=== PATIENT | female | born 1975 | race Caucasian/White ===

== ENCOUNTER 2019-12-18 12:16 | Observation (INO) | payer MEDICARE ==
[2019-12-18] MEDS ORDERED: Fentanyl 100 MCG/2 ML VIAL ONE ×2 (13:32→15:07)
[2019-12-18] MEDS ORDERED: Ondansetron PF 4 MG/2 ML Vial ONE (13:32)
--- NOTE | 2019-12-18 15:09 | ULT ---
Exam: Right upper extremity venous duplex ultrasound with color flow and spectral Doppler evaluation HISTORY: Right arm pain FINDINGS: Internal jugular vein, subclavian vein, axillary vein, brachial vein, and radial and ulnar veins are evaluated as well as the basilic and cephalic veins. There is phasic flow at all levels with normal compressibility and normal augmentation. No intralumin al thrombus. IMPRESSION: No evidence for deep venous thrombosis involving the right upper extremity.
[2019-12-18] MEDS ORDERED: HYDROcodone/Acetaminophen 7.5/325 mg Tablet PO PRN (15:48)
[2019-12-18] MEDS ORDERED: HYDROcodone/Acetaminophen 5/325 mg Tablet PO PRN (15:48)
[2019-12-18] MEDS ORDERED: Calcium Carbonate 500 MG ChewTAB PO PRN (15:48)
[2019-12-18] MEDS ORDERED: Loperamide HCl 2 MG CAP PO PRN (15:48)
[2019-12-18] MEDS ORDERED: Ondansetron PF 4 MG/2 ML Vial IVP PRN (15:48)
[2019-12-18] MEDS ORDERED: Ondansetron ODT 4 MG TAB PO PRN (15:48)
[2019-12-18] MEDS ORDERED: Bisacodyl 5 MG TAB PO PRN (15:48)
[2019-12-18] MEDS ORDERED: Acetaminophen 325 MG TAB PO PRN (15:48)
[2019-12-18] MEDS ORDERED: Benzonatate 100 MG CAP PO PRN (15:53)
[2019-12-18] MEDS ORDERED: Melatonin 3 MG TAB PO PRN (15:53)
[2019-12-18] MEDS ORDERED: Docusate 100 MG CAP PO PRN (15:53)
[2019-12-18] MEDS ORDERED: Morphine 2 MG/ML SYRINGE SLOW IVP PRN ×2 (15:53→16:05)
[2019-12-18] MEDS ORDERED: diphenhydrAMINE 25 MG CAP PO PRN (15:53)
[2019-12-18] MEDS ORDERED: Labetalol HCl 100 MG/20 ML VIAL SLOW IVP PRN (15:53)
[2019-12-18] MEDS ORDERED: Enoxaparin Sodium 100 MG/ML SYRINGE ONE (17:01)
[2019-12-18] MEDS ORDERED: Enoxaparin Sodium 40 MG/0.4 ML SYRINGE ONE (17:16)
--- NOTE | 2019-12-18 17:41 | PDOC.HHP ---
Hospitalist HPI - History of Present Illness Chest pain History of Present Illness: 44-year-old female with complex past medical history presents with chest pain and shortness of breath. Patient has an extensive past medical history including oxygen dependents 2 to 3 L nasal cannula continuously, congestive heart failure though she does not recall for systolic or diastolic, history of pulmonary embolism, pulmonary artery hypertension confirmed on cardiac catheterization, seizure disorder on Keppra, lupus, breast cancer status post bilateral mastectomy with lymph node removal, chronic lymphedema who is on diuretic therapy and chronic pain syndrome. Patient states that she just moved here from [place] roughly one month ago. Patient has not followed up with primary care physician, cardiology, or pulmonology. Patient also has been evaluated for obstructive sleep apnea and states that she had negative sleep study though her oxygen does drop when she sleeps. Patient with progressive worsening of swelling in the bilateral arms and the bilateral legs. Patient with chest pain and shortness of breath. Patient without associated palpitations , no diaphoresis, no fevers, no chills, no syncopal episodes. Patient admits to drinking excessive amount of liquid in states that she drinks sweet tea excessively. Patient with morbid obesity and states that she has lost a lot of weight compared to how heavy she once was. With patient's numerous medical comorbidities a cardiology consultation is requested for further recommendations. With a negative D dimer the pulmonary embolism has been ruled out and with a ultrasound negative for DVT in the upper extremity. Hospitalist ROS - Review of Systems All other systems reviewed; all pertinent +/- noted in HPI/Subj Hospitalist History - Past Medical History Source: patient Cardiac: reports: CHF, Pulmonary hypertension Pulmonary: reports: congestive heart failure, hypertension, lung disease, previously intubated, pulmonary embolism Heme/Onc: reports: Cancer Renal/: reports: Chronic renal insuff - Past Surgical History Past Surgical History: reports: Mastectomy, Other (Cardiac cath times 2 - one confirmed PAH, one with normal pressures. This is per patient) - Family History Family History: reports: hypertension - Social History Smoking Status: Unknown if ever smoked Alcohol: reports: Rare Living Situation: With Family Activity level: independent ambulation - Exam General Appearance: NAD, awake alert Eye: anicteric sclera ENT: normocephalic atraumatic, moist mucosa Neck: supple, symmetric, no lymphadenopathy Heart: no murmur, no gallops, no rubs Respiratory: no rales, no ronchi, normal chest expansion, no tachypnea, wheezes (faint lower lung ingram) Gastrointestinal: soft, non-tender, no guarding, no rigidity Extremities: 2+ LE edema Extremities - other findings: +1 UE edema bilaterally Skin: no lesions, no rashes Neurological: cranial nerve grossly intact, no focal deficits Musculoskeletal: generalized weakness Psychiatric: normal affect, normal behavior, A&O x 3 Hospitalist Results - Labs Lab results: Troponin I Less than 0.010 ng/mL (< 0.028) 12/18/19 13:17 B-Natriuretic Peptide 56.5 pg/mL (0-100) 12/18/19 13:17 - Radiology Interpretation Chest x-ray Status: image reviewed by hi Hospitalist H&P A/P - Problem (1) Chest pain Code(s): R07.9 - CHEST PAIN, UNSPECIFIED Status: Acute (2) Shortness of breath Code(s): R06.02 - SHORTNESS OF BREATH Status: Acute (3) CHF (congestive heart failure) Code(s): I50.9 - HEART FAILURE, UNSPECIFIED Status: Acute (4) PAH (pulmonary artery hypertension) Code(s): I27.21 - SECONDARY PULMONARY ARTERIAL HYPERTENSION Status: Acute (5) Obesity Code(s): E66.9 - OBESITY, UNSPECIFIED Status: Acute (6) Seizure Code(s): R56.9 - UNSPECIFIED CONVULSIONS Status: Acute (7) Lupus Code(s): M32.9 - SYSTEMIC LUPUS ERYTHEMATOSUS, UNSPECIFIED Status: Acute (8) Renal insufficiency Status: Acute (9) Breast cancer Status: Acute (10) Post-mastectomy lymphedema syndrome Code(s): I97.2 - POSTMASTECTOMY LYMPHEDEMA SYNDROME Status: Acute - Plan Plan: Plan: admit to medical unit with telemetry cardiology consultation, recommendations appreciated Supplemental O2 to maintain saturation greater than 88% echocardiogram CT scan of the chest with and without contrast negative D dimer, making PE unlikely VQ scan would limit ability to preform Lexiscan by 48 hours ultrasound of the upper extremity has ruled out a DVT patient with post mastectomy lymphedema syndrome patient has chronic lower extremity edema for which she takes Bumex at baseline patient with history of congestive heart failure that she does not know the ejection fraction history of pulmonary artery hypertension confirmed on cardiac catheterization in the past patient has been evaluated for obstructive sleep apnea was sleep study which she states was negative continue Yadi for seizure disorder history of lupus blood pressure control blood sugar control G.I. prophylaxis DVT prophylaxis Disposition: patient admitted with chest pain and shortness of breath the differential diagnosis is quite extensive. With a negative D dimer a pulmonary embolism is unlikely. Patient does not have infectious process ongoing at this time, afebrile/ normal WBC count. Patient's O2 saturation's are at her baseline on nasal cannula. Patient denies coronary artery disease and although this is possible, would be less likely given her age and lack or other risk factors. Patient may have pericardial effusion, and echocardiogram has been ordered.
[2019-12-18] MEDS ORDERED: Dextrose 5% in Water 1,000 ML IV PRN (18:32)
[2019-12-18] MEDS ORDERED: Dextrose 50% Abboject 50 ML SYRINGE SLOW IVP PRN (18:32)
[2019-12-18] MEDS ORDERED: HumaLOG 300 UNITS/3 ML VIAL SC PRN ×2 (18:32)
[2019-12-18 19:32] VITALS: BMI 47.5
[2019-12-18] MEDS: Potassium Chloride 20 MEQ TAB PO SCH (20:35)
[2019-12-18] MEDS: Gabapentin 300 MG CAP PO SCH (20:35)
[2019-12-18] MEDS: levETIRAcetam 500 MG TAB PO SCH (20:35)
[2019-12-18] MEDS ORDERED: Famotidine 20 MG TAB PO SCH (21:00)
[2019-12-18] MEDS ORDERED: rOPINIRole HCl 2 MG TAB PO SCH (21:00)
[2019-12-18] MEDS ORDERED: levETIRAcetam 500 MG TAB PO SCH (21:00)
[2019-12-18] MEDS ORDERED: Buprenorphine 8mg/Naloxone 2mg per 1 FILM SL SCH (21:15)
[2019-12-19] MEDS: Potassium Chloride 20 MEQ TAB PO SCH (02:51)
[2019-12-19 05:00] LABS: #Basophils 0.1 thou/uL (0.0-0.2); #Eosinphils 0.2 thou/uL (0.0-0.7); #Lymphocytes 2.9 thou/uL (1.20-3.40); #Monocytes 0.5 thou/uL (0.11-0.59); #Neutrophils 3.3 thou/uL (1.40-6.50); %Eosinophils 2.4 % (0.0-10.0); %Lymphocytes 42.3 % (21.0-51.0); %Monocytes 7.2 % (0.0-10.0); %Neutrophils 47.1 % (42.0-75.0); Hemoglobin 11.6 g/dL (12.0-16.0); Mean Corpuscular HGB CONC 31.4 g/dL (32.0-36.0); Mean Corpuscular Hemoglobin 27.8 pg (27.0-31.0); Mean Corpuscular Volume 88.6 fL (78.0-98.0); Mean Platelet Volume 8.3 fL (7.4-10.4); Platelet Count 240 thou/uL (130-400); RBC Distribution Width 13.4 % (11.5-14.5); Red Blood Cell (RBC) Count 4.16 mill/uL (4.20-5.40); White Blood Cell (WBC) Count 6.9 thou/uL (4.8-10.8)
[2019-12-19 05:25] LABS: Anion Gap 13 mmol/L (10-20); BUN (Urea Nitrogen) 16 mg/dL (7.0-18.7); Calc. Creatinine Clearance 220 mL/min (70-130); Carbon Dioxide 25 mmol/L (22-29); Chloride 105 mmol/L (98-107); Estimated GFR-MDRD 86; Glucose 120 mg/dL (70-105); Potassium 3.4 mmol/L (3.5-5.1); Sodium 140 mmol/L (136-145)
[2019-12-19] MEDS: Furosemide 20 MG/2 ML VIAL SLOW IVP SCH ×2 (05:45→14:26)
--- NOTE | 2019-12-19 07:52 | PDOC.HOSPP ---
- Subjective Encounter Date: 12/19/19 Encounter Time: 11:00 Subjective: No further chest pain. Chronic SOB. Mild swelling in RUE without pain or redness , not sure if had lymph nodes removed on that side or just the left. Had one of her typical migraines this AM that resolved with a single dose of IV Toradol. - Objective Vital Signs & Weight: Vital Signs (12 hours) Temp Pulse Resp BP Pulse Ox 12/19/19 05:00 98.3 F 83 18 131/84 98 Weight Weight 313 lb I&O: 12/18/19 12/19/19 12/20/19 06:59 06:59 06:59 Intake Total 492 Balance 492 Result Diagrams: 12/19/19 04:31 12/19/19 04:31 Additional Labs: Accuchecks 12/18/19 20:38 POC Glucose 90 Hospitalist ROS - Review of Systems Constitutional: denies: fever, chills Respiratory: reports: SOB with excertion. denies: cough Cardiovascular: reports: edema. denies: chest pain, palpitations Gastrointestinal: denies: nausea, vomiting, abdominal pain - Medication Medications: Active Medications Generic Name Dose Route Start Last Admin Trade Name Freq PRN Reason Stop Dose Admin Hydrocodone Bitart/Acetaminophen 1 tab 12/18/19 15:48 12/19/19 05:45 Vernon 7.5/325 PO 1 tab Q4H PRN Administration Severe Pain (7-10) Famotidine 20 mg 12/18/19 21:00 12/18/19 20:35 Pepcid PO 20 mg BID JAYDEN Administration Furosemide 20 mg 12/19/19 06:00 12/19/19 05:45 Lasix SLOW IVP 20 mg 0600,1400 JAYDEN Administration Gabapentin 300 mg 12/18/19 21:00 12/18/19 20:35 Neurontin PO 300 mg TID JAYDEN Administration Levetiracetam 250 mg 12/18/19 21:00 12/18/19 20:35 Keppra PO 250 mg BID JAYDEN Administration Melatonin 3 mg 12/18/19 15:53 12/18/19 20:35 Melatonin PO 3 mg HSPRN PRN Administration Insomnia Ropinirole HCl 6 mg 12/18/19 21:00 12/18/19 20:34 Requip PO 6 mg QPM JAYDEN Administration - Exam General Appearance: NAD, awake alert ENT: moist mucosa Heart: RRR, no murmur, no gallops, no rubs Respiratory: CTAB, no wheezes, no rales, no ronchi Gastrointestinal: soft, non-tender, non-distended, normal bowel sounds Psychiatric: normal affect, normal behavior, A&O x 3 Hosp A/P (1) Chest pain Code(s): R07.9 - CHEST PAIN, UNSPECIFIED Status: Acute (2) Shortness of breath Code(s): R06.02 - SHORTNESS OF BREATH Status: Acute (3) Hypokalemia Code(s): E87.6 - HYPOKALEMIA Status: Acute (4) CHF (congestive heart failure) Code(s): I50.9 - HEART FAILURE, UNSPECIFIED Status: Acute Qualifiers: Heart failure type: unspecified Heart failure chronicity: unspecified Qualified Code(s): I50.9 - Heart failure, unspecified (5) PAH (pulmonary artery hypertension) Code(s): I27.21 - SECONDARY PULMONARY ARTERIAL HYPERTENSION Status: Chronic (6) Obesity Code(s): E66.9 - OBESITY, UNSPECIFIED Status: Chronic (7) Lupus Code(s): M32.9 - SYSTEMIC LUPUS ERYTHEMATOSUS, UNSPECIFIED Status: Chronic (8) Breast cancer Status: Resolved (9) Post-mastectomy lymphedema syndrome Code(s): I97.2 - POSTMASTECTOMY LYMPHEDEMA SYNDROME Status: Chronic (10) Seizure disorder Code(s): G40.909 - EPILEPSY, UNSP, NOT INTRACTABLE, WITHOUT STATUS EPILEPTICUS Status: Chronic - Plan ECHO and CTA results pending Cardiology consultation- awaiting Dr. Cuello recommendations. DVT Proph: Lovenox
[2019-12-19] MEDS ORDERED: Potassium Chloride 20 MEQ TAB PO SCH (08:00)
[2019-12-19] MEDS ORDERED: Progesterone,Micronized 100 MG CAP PO SCH (09:00)
[2019-12-19] MEDS ORDERED: Famotidine 20 MG TAB PO SCH (09:00)
[2019-12-19] MEDS ORDERED: Non-Formulary Item 1 EACH (Zantac 150 MG) PO SCH (09:00)
[2019-12-19] MEDS ORDERED: Enoxaparin Sodium 40 MG/0.4 ML SYRINGE SC SCH (09:00)
[2019-12-19] MEDS ORDERED: Buprenorphine 8mg/Naloxone 2mg per 1 FILM SL SCH (09:00)
[2019-12-19] MEDS ORDERED: Topiramate 25 MG TAB PO SCH (09:00)
[2019-12-19] MEDS ORDERED: Ketorolac Tromethamine 30 MG/ML VIAL IVP SCH (09:45)
[2019-12-19] MEDS: Losartan 25 MG TAB PO SCH ×2 (10:08→16:57)
[2019-12-19] MEDS: Gabapentin 300 MG CAP PO SCH ×2 (10:10→14:26)
[2019-12-19] MEDS: levETIRAcetam 500 MG TAB PO SCH (10:10)
--- NOTE | 2019-12-19 11:28 | CT ---
CT ANGIO OF CHEST PERFORMED WITH INTRAVENOUS CONTRAST ENHANCEMENT AND 3D RECONSTRUCTIONS: HISTORY: Right-sided chest pain. The patient has wheezing. Also, a history of double mastectomy due to breas t cancer. FINDINGS: Some minimal subsegmental atelectatic changes in the lung changes. There is also some parenchymal ch zari in the left middle lobe probably on the basis of atelectasis versus some developing infiltrate. I would favor this being more atelectatic in nature. There is also evidence for some air trapping. No pleural effusions. No pulmonary nodules are identified. Pulmonary artery is mildly dilated at 4 .2 cm. There is fair pulmonary artery opacification. The patient's body habitus makes assessment ve ry difficult for more distal pulmonary emboli. I see no signs of any proximal embolus. There is no significant mediastinal or hilar adenopathy. Bilateral breast augmentation is present. Visualized liver parenchyma shows no focal findings. IMPRESSION: 1. Somewhat technically limited examination, but no CT evidence for pulmonary embolus. There is a m ildly dilated main pulmonary artery present. 2. Atelectatic change in the lung bases and probable atelectasis versus early infiltrate in the ling anya. 3. Evidence for air trapping. POS: TPC
[2019-12-19] MEDS ORDERED: Iopamidol 370 76% 100 ML VIAL ONE (13:51)
[2019-12-19 16:17] VITALS: TEMP 97.3
[2019-12-19 16:35] VITALS: BP 131/86
[2019-12-19] MEDS ORDERED: Non-Formulary Item 1 EACH (Eszopiclone [Lunesta] 3 MG) PO SCH (21:00)
[2019-12-19] MEDS ORDERED: Zolpidem Tartrate 5 MG TAB PO SCH (21:00)
--- NOTE | 2019-12-20 00:31 | CON ---
DATE OF CONSULTATION: HISTORY: Lyssa Peters is a 44-year-old white female with history of pulmonary emboli in 2009. She was placed on Coumadin for 6 months. She also apparently had a right heart catheterization, at that time was told that she had pulmonary artery hypertension. At a later time, she had another right heart catheterization after she had been on home oxygen, and her right-sided heart pressures were normal. She has problems with chronic arm and leg edema. She went to the emergency room in [place], complaining of right arm increasing edema. Also, she had pleuritic right-sided chest discomfort. The pain was only noticeable if she would take in a deep breath. She uses oxygen 2 to 3 L per minute continuously, but states that she has moved from [place] down to [facility]. She has been trying to see if she could do without it. PAST MEDICAL HISTORY: Diastolic heart failure; history of pulmonary embolism; history of pulmonary artery hypertension, although with oxygen therapy, apparently this was improved; seizure disorder, status post bilateral mastectomies for breast cancer; chronic lymphedema; chronic pain syndrome; questionable lupus or mixed connective tissue disease according to the patient. MEDICATIONS: 1. Bumex 2 mg b.i.d. 2. Jardiance 10 mg q.a.m. 3. Lunesta 3 mg q.p.m. 4. Gabapentin 300 t.i.d. 5. Keppra 250 b.i.d. 6. Losartan 50 b.i.d. 7. Progesterone 200 mg q.a.m. 8. Requip 2 tablets q.p.m. 9. Topamax 25 mg daily. 10. Zantac 150 b.i.d. ALLERGIES: MORPHINE, PENICILLIN, PNEUMOCOCCAL VACCINE, AND SULFA. SOCIAL HISTORY: She has never smoked. PHYSICAL EXAMINATION: VITAL SIGNS: Blood pressure 132/96, pulse of 82. HEENT: PERRL. NECK: Supple. CHEST: Clear, but distant. CARDIOVASCULAR: S1 and S2 normal without any S3, S4, or murmurs. ABDOMEN: Obese. Normal bowel sounds. EXTREMITIES: Revealed 1+ pretibial edema. LABORATORY DATA: EKGs on [place] revealed sinus tachycardia with nonspecific T-wave changes. Echocardiogram revealed ejection fraction of 50% to 55% with mild mitral regurgitation and mild tricuspid regurgitation. Right-sided heart pressures were normal, and there was no right ventricular dilatation. Cardiac enzymes; normal Troponin x2. Sodium 140, potassium 3.4, chloride 105, carbon dioxide 25, BUN 16, and creatinine 0.74. Hemoglobin 11.6, hematocrit 36.8, white count 6900, and platelets 240,000. D-dimer is 0.31. Right arm ultrasound revealed no evidence of deep venous thrombosis. Chest CTA was technically limited, but no evidence for pulmonary embolism. She had some atelectatic changes at the lung bases. IMPRESSION: 1. Right-sided pleuritic chest pain, which I doubt to be cardiac in nature. 2. History of pulmonary emboli in 2009. 3. History of pulmonary hypertension in the past; however at the present time, on echocardiogram, right ventricular size is normal, and she has no significant elevation of her right-sided heart pressures. 4. Chronic hypoxemia on O2 continuously. 5. Noncompliance with fluid restriction. 6. Hypertension. 7. History of seizures. PLAN: I do not feel any further cardiac evaluation is warranted at this time. It was emphasized to her that she must follow her fluid restriction of 1.5 to 2 quarts per day. Also, I strongly urged her to get a pulse oximeter and to not try to wean herself off the oxygen and probably result in more fluid retention. I will follow from a distance. Job ID: [id number] MTDD
--- NOTE | 2019-12-20 03:32 | DIS ---
DATE OF ADMISSION: 12/18/2019 DATE OF DISCHARGE: 12/19/2019 PRIMARY CARE PHYSICIAN: Establishing with the [facility] in [place]. REASON FOR ADMISSION: Chest pain. DIAGNOSES AT DISCHARGE: 1. Chest pain, resolved. 2. Acute on chronic shortness of breath. 3. Hypokalemia. 4. Congestive heart failure, diastolic, stable. 5. Pulmonary artery hypertension. 6. Obesity. 7. Lupus. 8. History of breast cancer, status post resection with postmastectomy lymphedema syndrome. 9. Seizure disorder. PROCEDURES PERFORMED: 1. Ultrasound of the right upper extremity showing no evidence for DVT. 2. CT angio with and without contrast of the chest showing no evidence for pulmonary embolism. Some atelectatic changes in lung bases and evidence of air trapping. 3. Echocardiogram showing ejection fraction of 50% to 55%. CONSULTATIONS: Cardiology, J Luis Cuello MD SUMMARY OF HOSPITAL COURSE: This is a 44-year-old white female with complex past medical history, who presented with chest pain and shortness of breath. She was actually most concerned that she had some right upper extremity swelling, which she had never had before. She has had a history of bilateral mastectomy and lymph node surgeries for breast cancer. She is uncertain if she had lymph node removal in the right axilla. However, she never had swelling before. The patient had noticed some shortness of breath and chest pain on and off. She does have chronic shortness of breath, however, is on 2 to 3 L nasal cannula oxygen all the time at home. She just moved from [place] about a month ago and has not established with any physicians here. She was supposed to see the [facility] to establish with primary care doctor today, however, she has had to reschedule that appointment. The patient did well in the hospital overnight. She had no chest pain or significant shortness of breath the next day. She had procedures done as above. Her cardiac marker sets were negative. She did have a consult with Dr. Cuello, Cardiology, who cleared her discharge home without any medication changes recommended. She is going to need followup with her private primary care doctor, as well as with Dr. Cuello and with the dishwasher for her chronic medical problems. DISCHARGE MANAGEMENT: Discharged home. ACTIVITY: As tolerated. DIET: Fluid restricted healthy heart diet. FOLLOWUP: Follow up with Dr. Cuello in 1 to 2 months, with Dr. Brading to establish care in the next month, and with the [facility] as soon as able to get a rescheduled appointment. DISCHARGE MEDICATIONS: Continue home medications: 1. Lunesta 3 mg at night. 2. Gabapentin 300 mg 3 times a day. 3. Keppra 250 mg twice a day. 4. Losartan 50 mg twice a day. 5. Progesterone micronized 200 mg daily. 6. Requip 6 mg at night. 7. Topamax 25 mg daily. 8. Zantac 150 mg twice a day. 9. Bumetanide 2 mg twice a day. 10. Suboxone sublingual film one fill sublingual daily. 11. Jardiance 10 mg daily. Job ID: [id number]
== END 2019-12-19 20:12 | disposition home or self-care (01) ==
LOC: ERS 12:16 → 2SW 15:56
PROVIDERS: ADMIT Internal Medicine; ATTEND Internal Medicine
DX: R07.81 Pleurodynia (principal); R06.02 Shortness of breath; E87.6 Hypokalemia; I13.0 Hypertensive heart and chronic kidney disease with heart failure and stage 1 through stage 4 chronic kidney disease, or unspecified chronic kidney disease; N18.9 Chronic kidney disease, unspecified; I50.30 Unspecified diastolic (congestive) heart failure; I27.21 Secondary pulmonary arterial hypertension; M32.9 Systemic lupus erythematosus, unspecified; I97.2 Postmastectomy lymphedema syndrome; G40.909 Epilepsy, unspecified, not intractable, without status epilepticus; G89.4 Chronic pain syndrome; R09.02 Hypoxemia; E66.01 Morbid (severe) obesity due to excess calories; Z68.42 Body mass index [BMI] 45.0-49.9, adult; Z85.3 Personal history of malignant neoplasm of breast; Z91.19 Patient's noncompliance with other medical treatment and regimen; Z79.899 Other long term (current) drug therapy; Z88.0 Allergy status to penicillin; Z88.2 Allergy status to sulfonamides; Z88.5 Allergy status to narcotic agent; Z88.7 Allergy status to serum and vaccine; Z99.81 Dependence on supplemental oxygen
CPT/HCPCS: 71275; 80048; 82962 ×2; 83880; 84484; 85025; 93306; 93971; 96372; 96374; 96375; 96376; 97139 ×3; 99285; G0378 ×3; 36415; 36416; J1650; J1885; J1940; J2405; J3010; Q9967

== ENCOUNTER 2020-01-28 08:41 | Observation (INO) | payer MEDICARE ==
[2020-01-28 10:27] VITALS: BMI 46.6
[2020-01-28] MEDS ORDERED: Acetaminophen 325 MG TAB PO PRN (10:52)
[2020-01-28] MEDS ORDERED: Senokot S 8.6-50 MG TAB PO PRN (10:52)
[2020-01-28 10:59] LABS: Troponin I 0.029 ng/mL (< 0.028)
[2020-01-28] MEDS ORDERED: Morphine 2 MG/ML SYRINGE SLOW IVP SCH (11:45)
[2020-01-28] MEDS: Gabapentin 300 MG CAP PO SCH ×3 (12:05→21:25)
[2020-01-28 14:34] LABS: Troponin I Less than 0.010 ng/mL (< 0.028)
[2020-01-28] MEDS: Losartan 25 MG TAB PO SCH (16:06)
[2020-01-28] MEDS: Acetaminophen/Codeine 30-300mg Tablet PO PRN (16:55)
[2020-01-28 17:19] LABS: Anion Gap 12 mmol/L (10-20); BUN (Urea Nitrogen) 11 mg/dL (7.0-18.7); Calc. Creatinine Clearance 213 mL/min (70-130); Calcium 8.7 mg/dL (7.8-10.44); Carbon Dioxide 26 mmol/L (22-29); Chloride 105 mmol/L (98-107); Estimated GFR-MDRD 84; Glucose 95 mg/dL (70-105); Sodium 140 mmol/L (136-145)
[2020-01-28 17:24] LABS: Potassium 2.9 mmol/L (3.5-5.1)
[2020-01-28] MEDS: Morphine 2 MG/ML SYRINGE SLOW IVP PRN ×2 (17:46→21:36)
[2020-01-28] MEDS ORDERED: Potassium Chloride 40 MEQ in Sodium Chloride 0.9% 250 ML 250 ML IVPB SCH (18:00)
--- NOTE | 2020-01-28 19:27 | HP ---
CHIEF COMPLAINT: Chest pain. HISTORY OF PRESENT ILLNESS: The patient is a very pleasant 44-year-old female with a past medical history of breast cancer, lupus, seizure disorder, who presents to the hospital with complaints of chest pain x1 day. The patient stated that for the past couple of weeks she has noticed some significant drainage around her nipple area. She states that she has had a bilateral mastectomy and has required reconstruction with a nipple sparing, so her nipples are her own. She states that she has noticed that her nipple area on the right breast especially has gotten very darker, has ulceration and has been having some clear and bloody discharge. She also noticed that her nipple is very flattened and she is having some skin peeling over there. Denies any fevers or chills. She did state that she went to her primary care provider on , who took cultures from the right nipple area and told her to follow up on the next following Thursday. However, the patient states that she started having sharp pain starting on her nipple area radiating to her chest wall area, which made her come into the hospital. PAST MEDICAL HISTORY: She has a history of connective tissue disease, lupus, ductal carcinoma initially diagnosed in 2008, it was stage zero. She had a lumpectomy. At that time, she was offered radiation; however, according to the patient, she stated that she decided against it since it would not benefit her based on what she was told at that time. She does not recall what if it was ER/MN or HER2 positive or triple negative, she does not recall that. She only knows it was ductal carcinoma. Then, again, back in 2009, she had an another lesion, which was also cancerous at that time. She underwent a bilateral mastectomy. She then in 2011 had a return of the cancer in her chest wall, and at that time, that was also removed. This was on both breasts according to her. She has never underwent any chemotherapy, radiation, or any oral medications. The patient states that she did follow up with her oncologist in 2013 and since from 2013 to now, she has had no followup, new mammogram, or radiographic screening. She states that she has been told that any time she has a radiographic imaging, she will light up as a Quang tree. She states that her oncologist stated that most of her findings will be based on clinical examination. All of this was done at [facility] in [place]. Her doctor's name was Trina Bojorquez, who was her oncologist. PAST SURGICAL HISTORY: 1. She has had mastectomy bilaterally. 2. Cholecystectomy. 3. Three C sections. 4. Carpal tunnel surgery. 5. Right ankle surgery. 6. She has had 2 partial hysterectomies for endometriosis. SOCIAL HISTORY: She denies any alcohol use, drug use, or smoking history. She is a full code. Lives with her 3 kids. FAMILY HISTORY: Father had heart disease at age of 40. Mother had hypertension. She was a drug user and . Her mother also had breast cancer. REVIEW OF SYSTEMS: All negative except for the ones mentioned above in HPI. PHYSICAL EXAMINATION: VITAL SIGNS: Temperature of 98.1, pulse 78, respirations 20, O2 saturation 95% on room air, blood pressure 140/84. GENERAL: She is awake, alert, and oriented x3. Does not appear in distress. CV: S1, S2 present. No murmurs, rubs, or gallops. BREASTS: She does have significant ulceration to her right nipple with some serous drainage upon squeezing her nipple area. Also, some clear fluid is also seen. She does have some discoloration around her nipple area. I was unable to feel any lymph notes or palpate anything on her right breast or on the left breast. Her left breast nipple has a very small ulceration. No significant changes as compared though to her right breast. LUNGS: Clear to auscultation. No rhonchi or wheezes noted. SKIN: She has significant tattooing all over. ABDOMEN: Soft, obese. Bowel sounds are present x2. Nontender. EXTREMITIES: She does have 1+ lower extremity edema, and pedal pulses are present x2. LABORATORY RESULTS: She was noted to have as of the following; WBC of 6.9, hemoglobin of 11.7, hematocrit of 38.4, platelets of 308. Chemistry; sodium of 141, potassium of 2.7, BUN of 14, creatinine of 0.74. Her troponin initially was 0.029. Her magnesium was 2.2, then came down to 0.010. IMAGING RESULTS: She had no other imaging done. ASSESSMENT AND PLAN: The patient is a very pleasant 44-year-old female, presents to the hospital initially for chest pain. 1. Chest pain is atypical. Upon my interviewing with her, she stated that she never had substernal chest pain. She had pain around her right nipple area going up her right breast area. It is sharp in nature, that just started for the past couple of days. She was worried that there was something wrong with her, that is why she came into the hospital. At this time, she had only one mildly elevated troponin. I have ordered an echocardiogram; however, she recently had an echocardiogram back in November 2019 and it indicated an EF of 50% to 55% with mild MR and mild TR. 2. Hypokalemia. She is on which can cause that; however, she states that she has been eating and drinking without any issues. Her magnesium is normal. Also, she is on losartan. There is no clear etiology why she is so hypokalemic. We will replace and we will continue to monitor. 3. Change of her right nipple. I did speak with Radiology again, what I will do is I will try and connect her with Oncology and Surgery. She will require a mammogram and an ultrasound, which most likely can be done as an outpatient and I will notify her about that. 4. Deep venous thrombosis prophylaxis. We will put the patient on SCDs and subcu Lovenox. Job ID: [id number]
[2020-01-28] MEDS ORDERED: Non-Formulary Item 1 EACH (Levetiracetam [Keppra] 250 MG) PO SCH (21:00)
[2020-01-28] MEDS ORDERED: Non-Formulary Item 1 EACH (Zantac 150 MG) PO SCH (21:00)
[2020-01-28] MEDS ORDERED: Non-Formulary Item 1 EACH (Eszopiclone [Lunesta] 3 MG) PO SCH (21:00)
[2020-01-28] MEDS ORDERED: ROPINIROLE HCL PO SCH (21:00)
[2020-01-28] MEDS: rOPINIRole HCl 2 MG TAB PO SCH (21:25)
[2020-01-28] MEDS: Zolpidem Tartrate 5 MG TAB PO SCH (21:26)
[2020-01-28] MEDS: levETIRAcetam 500 MG TAB PO SCH (21:26)
[2020-01-28] MEDS: Famotidine 20 MG TAB PO SCH (21:27)
[2020-01-28] MEDS: Buprenorphine 8mg/Naloxone 2mg per 1 FILM SL SCH (21:27)
[2020-01-28] MEDS: Topiramate 25 MG TAB PO SCH (21:27)
[2020-01-29] MEDS: Acetaminophen/Codeine 30-300mg Tablet PO PRN ×5 (00:03→23:24)
[2020-01-29] MEDS: Morphine 2 MG/ML SYRINGE SLOW IVP PRN ×5 (01:00→20:47)
[2020-01-29 04:28] LABS: #Eosinphils 0.2 thou/uL (0.0-0.7); #Lymphocytes 1.9 thou/uL (1.20-3.40); #Monocytes 0.4 thou/uL (0.11-0.59); #Neutrophils 2.8 thou/uL (1.40-6.50); %Basophils 0.6 % (0.0-1.0); %Lymphocytes 35.3 % (21.0-51.0); %Monocytes 7.3 % (0.0-10.0); %Neutrophils 52.8 % (42.0-75.0); Mean Corpuscular HGB CONC 32.6 g/dL (32.0-36.0); Mean Corpuscular Hemoglobin 29.5 pg (27.0-31.0); Mean Corpuscular Volume 90.3 fL (78.0-98.0); Mean Platelet Volume 8.1 fL (7.4-10.4); Platelet Count 272 thou/uL (130-400); RBC Distribution Width 13.9 % (11.5-14.5); Red Blood Cell (RBC) Count 3.72 mill/uL (4.20-5.40); White Blood Cell (WBC) Count 5.4 thou/uL (4.8-10.8)
[2020-01-29 04:46] LABS: Anion Gap 10 mmol/L (10-20); BUN (Urea Nitrogen) 12 mg/dL (7.0-18.7); Calc. Creatinine Clearance 245 mL/min (70-130); Calcium 8.8 mg/dL (7.8-10.44); Carbon Dioxide 27 mmol/L (22-29); Chloride 108 mmol/L (98-107); Estimated GFR-MDRD Greater than 90; Glucose 108 mg/dL (70-105); Potassium 3.2 mmol/L (3.5-5.1); Sodium 142 mmol/L (136-145)
[2020-01-29] MEDS ORDERED: Potassium Chloride 40 MEQ in Premix Bag 1 BAG IVPB SCH (07:45)
[2020-01-29] MEDS: Potassium Chloride 20 MEQ in Premix Bag 1 BAG IVPB SCH ×2 (08:19→13:16)
[2020-01-29] MEDS: Enoxaparin Sodium 40 MG/0.4 ML SYRINGE SC SCH (08:19)
[2020-01-29] MEDS: Gabapentin 300 MG CAP PO SCH ×4 (08:20→20:46)
[2020-01-29] MEDS: Famotidine 20 MG TAB PO SCH ×2 (08:21→20:45)
[2020-01-29] MEDS: levETIRAcetam 500 MG TAB PO SCH ×2 (08:22→20:46)
[2020-01-29] MEDS: Losartan 25 MG TAB PO SCH ×2 (08:22→17:01)
[2020-01-29] MEDS: Empagliflozin 10 MG TAB PO SCH (08:23)
[2020-01-29] MEDS: Buprenorphine 8mg/Naloxone 2mg per 1 FILM SL SCH ×2 (08:47→20:47)
[2020-01-29] MEDS ORDERED: Potassium Chloride 20 MEQ TAB PO SCH (14:30)
--- NOTE | 2020-01-29 14:59 | PDOC.HOSPP ---
- Subjective Encounter Date: 01/29/20 Encounter Time: 10:15 Subjective: pt up in bed complains of pain to her right breast area. - Objective Vital Signs & Weight: Vital Signs (12 hours) Temp Pulse Resp BP BP Pulse Ox 01/29/20 12:10 97.7 F 67 15 119/64 96 01/29/20 08:07 97.6 F 63 12 131/64 95 01/29/20 03:50 98.1 F 63 21 H 109/67 93 L Weight Weight 306 lb 14.4 oz I&O: 01/28/20 01/29/20 01/30/20 06:59 06:59 06:59 Intake Total 1440 Output Total 800 Balance 640 Result Diagrams: 01/29/20 03:56 01/29/20 03:56 Hospitalist ROS - Review of Systems Cardiovascular: reports: chest pain (right breast pain). denies: palpitations, orthopnea, paroxysmal noc. dyspnea, edema, light headedness, other Gastrointestinal: denies: nausea, vomiting, abdominal pain, diarrhea, constipation, melena, hematochezia, other Genitourinary: denies: dysuria, frequency, incontinence, hematuria, retention, other - Medication Medications: Active Medications Generic Name Dose Route Start Last Admin Trade Name Freq PRN Reason Stop Dose Admin Acetaminophen 650 mg 01/28/20 10:52 01/29/20 00:03 Tylenol PO 650 mg Q4H PRN Administration Headache/Fever/Mild Pain (1-3) Acetaminophen/Codeine Phosphate 1 tab 01/28/20 16:28 01/29/20 08:25 Tylenol #3 PO 1 tab Q6H PRN Administration Pain Buprenorphine/Naloxone 1.5 film 01/28/20 21:00 01/29/20 08:47 Suboxone SL 1.5 film BID JAYDEN Administration Enoxaparin Sodium 40 mg 01/29/20 09:00 01/29/20 08:19 Lovenox SC 40 mg 0900 JAYDEN Administration Famotidine 20 mg 01/28/20 21:00 01/29/20 08:21 Pepcid PO 20 mg BID JAYDEN Administration Gabapentin 300 mg 01/28/20 13:00 01/29/20 14:03 Neurontin PO 300 mg QID JAYDEN Administration Levetiracetam 250 mg 01/28/20 21:00 01/29/20 08:22 Keppra PO 250 mg BID JAYDEN Administration Losartan Potassium 50 mg 01/28/20 16:30 01/29/20 08:22 Cozaar PO 50 mg BID-AC JAYDEN Administration Miscellaneous Medication 10 mg 01/29/20 09:00 01/29/20 08:23 Jardiance PO 10 mg QAM JAYDEN Administration Morphine Sulfate 2 mg 01/28/20 16:28 01/29/20 11:16 Morphine SLOW IVP 2 mg Q4H PRN Administration Pain Ropinirole HCl 6 mg 01/28/20 21:00 01/28/20 21:25 Requip PO 6 mg QPM JAYDEN Administration Sodium Chloride 10 ml 01/29/20 09:00 01/29/20 08:45 Flush - Normal Saline IVF 10 ml Q12HR JAYDEN Administration Sodium Chloride 10 ml 01/29/20 07:39 01/29/20 08:24 Flush - Normal Saline IVF 10 ml PRN PRN Administration Saline Flush Topiramate 25 mg 01/28/20 21:00 01/28/20 21:27 Topamax PO 25 mg HS JAYDEN Administration Zolpidem Tartrate 10 mg 01/28/20 21:00 01/28/20 21:26 Ambien PO 10 mg HS JAYDEN Administration - Exam Heart: negative: RRR, no murmur, no gallops, no rubs, normal peripheral pulses, irregular, diminshed peripheral pulses, murmur present, II/IV, III/IV Respiratory: negative: CTAB, no wheezes, no rales, no ronchi, normal chest expansion, no tachypnea, normal percussion, rales, rhonchi, tachypneic, wheezes Gastrointestinal: negative: soft, non-tender, non-distended, normal bowel sounds , no palpable masses, no hepatomegaly, no splenomegaly, no bruit, no guarding, no rigidity, tender to palpation, distended, diminished bowl sounds, voluntary guarding Skin - other findings: right breast blister noted Hosp A/P (1) Hypokalemia Code(s): E87.6 - HYPOKALEMIA Status: Acute (2) Lupus Code(s): M32.9 - SYSTEMIC LUPUS ERYTHEMATOSUS, UNSPECIFIED Status: Chronic (3) Obesity Code(s): E66.9 - OBESITY, UNSPECIFIED Status: Chronic (4) PAH (pulmonary artery hypertension) Code(s): I27.21 - SECONDARY PULMONARY ARTERIAL HYPERTENSION Status: Chronic (5) Breast cancer Status: Resolved - Plan will get breast ultrasound, will increase pain meds. K replaced. she is on oxygen for her pulmonary htn. pt noted to have a blister to her right breast. will start Keflex. she is not allergic to it.
[2020-01-29] MEDS: Cephalexin 250 MG CAP PO SCH ×2 (17:01→23:24)
--- NOTE | 2020-01-29 18:16 | ULT ---
LEFT BREAST ULTRASOUND: History: Bloody discharge. History of ductal carcinoma in the right breast and history of bilateral m astectomies and breast implants. FINDINGS: Real-time imaging of the left breast region shows fatty type tissue without definite breast parenchym a. I never definitely visualized the breast implant on this exam. No masses or fluid collections. IMPRESSION: Unremarkable left breast ultrasound. This is an incomplete study. Further evaluation would be require d with comparison to old mammogram studies and a mammogram of both breasts. POS: KAVITHA
--- NOTE | 2020-01-29 18:43 | ULT ---
RIGHT BREAST ULTRASOUND: History: Patient has a history of ductal carcinoma in the right breast and bilateral mastectomy. Ml r bloody discharge from right nipple for a few weeks. FINDINGS: Real-time imaging of the right breast fails to show any cystic or solid mass. I do not see any defini tive breast tissue. It appears to be mostly fatty type tissue. Reportedly the patient has an implant but this is not definitely visualized on this exam. IMPRESSION: Unremarkable right breast ultrasound. Mammogram would be recommended for further assessment. POS: KAVITHA
[2020-01-29] MEDS: rOPINIRole HCl 2 MG TAB PO SCH (20:45)
[2020-01-29] MEDS: Zolpidem Tartrate 5 MG TAB PO SCH (20:46)
[2020-01-29] MEDS: Topiramate 25 MG TAB PO SCH (20:48)
[2020-01-30] MEDS: Morphine 2 MG/ML SYRINGE SLOW IVP PRN ×3 (01:30→10:46)
[2020-01-30] MEDS: Acetaminophen/Codeine 30-300mg Tablet PO PRN ×3 (03:07→15:20)
[2020-01-30 05:01] LABS: Anion Gap 14 mmol/L (10-20); BUN (Urea Nitrogen) 11 mg/dL (7.0-18.7); Calc. Creatinine Clearance 231 mL/min (70-130); Calcium 8.8 mg/dL (7.8-10.44); Carbon Dioxide 20 mmol/L (22-29); Chloride 110 mmol/L (98-107); Estimated GFR-MDRD Greater than 90; Glucose 124 mg/dL (70-105); Potassium 3.6 mmol/L (3.5-5.1); Sodium 140 mmol/L (136-145)
[2020-01-30] MEDS: Cephalexin 250 MG CAP PO SCH ×2 (06:13→12:26)
[2020-01-30] MEDS: Enoxaparin Sodium 40 MG/0.4 ML SYRINGE SC SCH (07:45)
[2020-01-30] MEDS: Losartan 25 MG TAB PO SCH (07:45)
[2020-01-30] MEDS: levETIRAcetam 500 MG TAB PO SCH (07:46)
[2020-01-30] MEDS: Famotidine 20 MG TAB PO SCH (07:47)
[2020-01-30] MEDS: Empagliflozin 10 MG TAB PO SCH (07:48)
[2020-01-30] MEDS: Gabapentin 300 MG CAP PO SCH ×2 (07:49→12:26)
[2020-01-30] MEDS: Buprenorphine 8mg/Naloxone 2mg per 1 FILM SL SCH (09:10)
[2020-01-30] MEDS ORDERED: Potassium Chloride 20 MEQ TAB PO SCH ×3 (12:00→16:00)
[2020-01-30] MEDS ORDERED: Bumetanide 1 MG/4 ML VIAL IVP SCH (12:30)
[2020-01-30 16:00] VITALS: BP 143/99; TEMP 98.7
[2020-01-31] MEDS ORDERED: Bumetanide 1 MG/4 ML VIAL IVP SCH (09:00)
--- NOTE | 2020-02-01 06:04 | PQF ---
ALDO LARIOS CRUZ [id number] [facility]-[id number] CLINICAL DOCUMENTATION CLARIFICATION FORM: POST DISCHARGE Addendum to original discharge summary date: ____ Late entry note date: __ DATE: 02/01/2020 ATTN: Cruz Andre Please exercise your independent, professional judgment in responding to the clarification form. Clinical indicators are provided on the bottom of this form for your review Can you please further identiyf the etiology of chest pain, if due to: Please check appropriate box(s): [ ] Hypokalemia [ ] Breast cancer [ ] Breast Blister, can you please further specify the condition: [ x ] Musculoskeletal pain. HER PAIN WAS ON HER RIGHT NIPPLE RADIATING TO HER RIGHT BREAST. [ ] Other diagnosis [ ] Unable to determine For continuity of documentation, please document condition throughout progress notes and discharge summary. Thank You. CLINICAL INDICATORS - SIGNS / SYMPTOMS /LABS Laboratory 01/27 Potassium 2.9, Troponin I 0.029; 0.010 Vital signs 01/27 Temp 98.1, Pulse 78, Resp 20, Bp 140/84 H&P p1 01/27 Dr Ny presents to the hospital with complaints of chest pain x1 day H&P p1 01/27 Dr Ny pt stated that for the past couple of weeks she has noticed some significant drainage around her nipple area H&P p3 01/27 Dr Ny Chest pain is atypical H&P p3 01/27 Dr Ny Hypokalemia which can cause that, she states that she has been eating and drinking without issue H&P p3 01/27 Dr Ny change of her right nipple PN p6 01/28 Pt noted to have a blister to her right breast RISK FACTORS H&P p1 01/27 hx of Breast Cancer s/p BL mastectomy H&P p1 4/4 Seizure disorder H&P p1 01/27 Lupus H&P p3 01/27 EF of 50% - 55%, mild MR and Mild TR PN p6 01/28 - pulmonary HTN TREATMENTS: DEC 27 IV Morphine 2mg DEC 27 K-Dur 40meq oral DEC 27 Suboxone 1.5 film Sublingual DEC 27 IVF NS 1L DEC 27 Tylenol 1tab oral DEC 27 Pepcid 20mg oral DEC 27 Keflex 250 mg oral Breast ultrasound 01/27 (This form is maintained as a part of the permanent medical record) 2014 [employer]. All Rights Reserved [email or web address]
== END 2020-01-30 16:40 | disposition home or self-care (01) ==
LOC: 2NO 09:53 → INTOOBSV 09:53 → OBSVTOIN 09:53
PROVIDERS: ADMIT Internal Medicine; ATTEND Internal Medicine
DX: N64.4 Mastodynia (principal); M32.9 Systemic lupus erythematosus, unspecified; G40.909 Epilepsy, unspecified, not intractable, without status epilepticus; E87.6 Hypokalemia; I27.21 Secondary pulmonary arterial hypertension; E66.9 Obesity, unspecified; Z68.42 Body mass index [BMI] 45.0-49.9, adult; Z85.3 Personal history of malignant neoplasm of breast; Z79.84 Long term (current) use of oral hypoglycemic drugs; Z79.899 Other long term (current) drug therapy; Z88.0 Allergy status to penicillin; Z88.2 Allergy status to sulfonamides; Z88.5 Allergy status to narcotic agent; Z88.6 Allergy status to analgesic agent; Z90.13 Acquired absence of bilateral breasts and nipples
CPT/HCPCS: 76642 ×2; 80048 ×3; 83735; 84484 ×2; 85025; 93005; 97139; J1650 ×2; J2270 ×3; J3480 ×2; J3490; J7050; 36415; 93010

== ENCOUNTER 2020-02-17 12:15 | Emergency (ER) | payer MEDICARE, OTHER ==
[~2020-02-17 12:15] MED LIST: Iopamidol-370 76% 500 ML 1 ML ONE
[2020-02-17 13:50] LABS: Troponin I Less than 0.010 ng/mL (< 0.028)
[2020-02-17] MEDS ORDERED: Famotidine/PF 20 mg/2ml Vial ONE (14:06)
[2020-02-17] MEDS ORDERED: EPINEPHrine 1 MG/ML AMP ONE (14:06)
[2020-02-17] MEDS ORDERED: diphenhydrAMINE 50 MG/ML VIAL ONE (14:06)
[2020-02-17] MEDS ORDERED: methylPREDNISolone Sod Succ/PF 125 MG/2 ML VIAL ONE (14:06)
--- NOTE | 2020-02-17 15:00 | CT ---
CT PULMONARY ANGIOGRAM WITH IV CONTRAST AND 3D MIP RECONSTRUCTIONS: DATE: 02/17/2020. PROVIDED CLINICAL HISTORY: Chest pain. FINDINGS: Comparison is made with the study dated 12/19/2019. There is no evidence for central or segmental pulmonary embolus. There is marked dilatation of the m ain pulmonary artery segment, measuring up to 4.4 cm in greatest transverse dimension. There is a jung ggestion of a waist in the region of the pulmonary outflow tract. There is a normal-caliber to the t horacic aorta, without evidence for dissection. There is no evidence for thoracic lymph node enlargement. The airway appears patent and of normal ca liber. There is inhomogeneous nonattenuation with a somewhat focal area of ground-glass opacity invo lving the small portion of the right lung apex. No jessica consolidation or nodule is evident. No ple ural fluid or pneumothorax apparent. The visualized portions of the upper abdomen demonstrate a 2.7 cm posterior segment right hepatic lob e hypodense mass which is incompletely characterized on the basis of this study. The osseous structures demonstrate no concerning lytic or blastic lesions. IMPRESSION: 1. No evidence for central or segmental pulmonary embolus. 2. Marked dilatation of the main pulmonary artery segment. This may be on the basis of increased pu lmonary arterial pressures or possibly pulmonic valve stenosis. 3. Inhomogeneous lung attenuation can be seen in the setting of mosaic perfusion. Somewhat focal gr ound-glass opacity involving the right lung apex is nonspecific but could represent an area of infect ious or inflammatory pneumonitis. 4. Posterior segment right hepatic lobe hypodense mass, incompletely characterized on the basis of t his study. Metastatic lesion should be considered. Dedicated imaging on a nonemergent basis is jasvir mmended. 5. The technologist indicated the patient experienced shortness of breath and itching following intr avenous contrast administration, compatible with a contrast reaction. Such should be noted in the [facility] and the patient should be premedicated prior to future IV contrast administrat ion. POS: QUAN
--- NOTE | 2020-02-22 14:11 | EKG ---
Test Reason : Blood Pressure : / mmHG Vent. Rate : 104 BPM Atrial Rate : 104 BPM P-R Int : 158 ms QRS Dur : 092 ms QT Int : 332 ms P-R-T Axes : 027 -08 -54 degrees QTc Int : 436 ms Sinus tachycardia Minimal voltage criteria for LVH, may be normal variant Cannot rule out Anterior infarct , age undetermined Abnormal ECG Confirmed by WHITNEY SERNA DO ([id number]), avid editor LEXI ALICEA ([id number]) on 02/22/2020 2:10:43 PM Referred By: Confirmed By:WHITNEY SERNA DO
== END 2020-02-17 18:52 | disposition home or self-care (01) ==
LOC: ERS 12:15
DX: T78.2XXA Anaphylactic shock, unspecified, initial encounter (principal); R16.0 Hepatomegaly, not elsewhere classified; R07.9 Chest pain, unspecified; I50.9 Heart failure, unspecified; F32.9 Major depressive disorder, single episode, unspecified; Z20.828 Contact with and (suspected) exposure to other viral communicable diseases; Z79.899 Other long term (current) drug therapy; Z86.711 Personal history of pulmonary embolism; Z86.718 Personal history of other venous thrombosis and embolism
CPT/HCPCS: 71275; 84484; 93005; 96372; 96374; 96375; 99285; U0002; 36415; 87635; A4353; J0171; J1200; J2930; Q9967; S0028; U0003

== ENCOUNTER 2020-03-20 14:24 | Emergency (ER) | payer MEDICARE, MEDICAID ==
[2020-03-20 15:41] LABS: #Basophils 0.1 thou/uL (0.0-0.2); #Eosinphils 0.1 thou/uL (0.0-0.7); #Lymphocytes 1.4 thou/uL (1.20-3.40); #Monocytes 0.6 thou/uL (0.11-0.59); #Neutrophils 6.2 thou/uL (1.40-6.50); %Basophils 1.1 % (0.0-1.0); %Eosinophils 1.5 % (0.0-10.0); %Monocytes 6.9 % (0.0-10.0); %Neutrophils 73.5 % (42.0-75.0); Hemoglobin 13.3 g/dL (12.0-16.0); Mean Corpuscular HGB CONC 32.2 g/dL (32.0-36.0); Mean Platelet Volume 8.5 fL (7.4-10.4); Platelet Count 262 thou/uL (130-400); RBC Distribution Width 13.1 % (11.5-14.5); Red Blood Cell (RBC) Count 4.61 mill/uL (4.20-5.40); White Blood Cell (WBC) Count 8.4 thou/uL (4.8-10.8)
[2020-03-20 16:02] LABS: ALT (SGPT) 18 U/L (8-55); AST (SGOT) 20 U/L (5-34); Albumin 4.3 g/dL (3.5-5.0); Alkaline Phosphatase 144 U/L (40-110); Anion Gap 16 mmol/L (10-20); BUN (Urea Nitrogen) 17 mg/dL (7.0-18.7); Bilirubin, Total 0.3 mg/dL (0.2-1.2); Calc. Creatinine Clearance 0 mL/min (70-130); Calcium 9.3 mg/dL (7.8-10.44); Carbon Dioxide 23 mmol/L (22-29); Chloride 101 mmol/L (98-107); Estimated GFR-MDRD 76; Globulin 3.9 g/dL (2.4-3.5); Glucose 100 mg/dL (70-105); Potassium 3.1 mmol/L (3.5-5.1); Protein, Total 8.2 g/dL (6.0-8.3); Sodium 137 mmol/L (136-145)
== END 2020-03-20 16:40 | disposition home or self-care (01) ==
LOC: ERS 14:24
DX: L03.113 Cellulitis of right upper limb (principal); N61.0 Mastitis without abscess; I50.9 Heart failure, unspecified; F32.9 Major depressive disorder, single episode, unspecified; Z79.899 Other long term (current) drug therapy; Z86.718 Personal history of other venous thrombosis and embolism; Z86.711 Personal history of pulmonary embolism; Z85.3 Personal history of malignant neoplasm of breast
CPT/HCPCS: 36415; 80053; 85025; 99283

== ENCOUNTER 2020-04-06 00:12 | Emergency (ER) | payer MEDICARE, MEDICAID ==
[2020-04-06 01:36] LABS: Anion Gap 12 mmol/L (10-20); BUN (Urea Nitrogen) 15 mg/dL (7.0-18.7); Calc. Creatinine Clearance 0 mL/min (70-130); Calcium 8.8 mg/dL (7.8-10.44); Carbon Dioxide 26 mmol/L (22-29); Chloride 106 mmol/L (98-107); Estimated GFR-MDRD 79; Glucose 101 mg/dL (70-105); Potassium 3.5 mmol/L (3.5-5.1); Sodium 140 mmol/L (136-145)
== END 2020-04-06 03:27 | disposition home or self-care (01) ==
LOC: ERS 00:12
DX: G40.909 Epilepsy, unspecified, not intractable, without status epilepticus (principal); L98.499 Non-pressure chronic ulcer of skin of other sites with unspecified severity; I11.0 Hypertensive heart disease with heart failure; I50.9 Heart failure, unspecified; Z86.718 Personal history of other venous thrombosis and embolism; Z86.711 Personal history of pulmonary embolism; F32.9 Major depressive disorder, single episode, unspecified; Z79.899 Other long term (current) drug therapy
CPT/HCPCS: 36415; 80048; 80177; 99284

== ENCOUNTER 2020-05-19 14:44 | Emergency (ER) | payer MEDICARE, MEDICAID ==
[2020-05-19 16:11] LABS: Pregnancy Test - Urine (BHCG) Negative (Negative); Pregu Control Background? CLEAR/WHITE (CLR/WHITE); Pregu Control Bar Appear? YES (CONTROL BAR); Specific Gravity 1.005 (1.002-1.036)
[2020-05-19] MEDS ORDERED: methylPREDNISolone Sod Succ/PF 125 MG/2 ML VIAL ONE (16:22)
[2020-05-19] MEDS ORDERED: Famotidine/PF 20 mg/2ml Vial ONE (16:22)
[2020-05-19] MEDS ORDERED: Famotidine 20 MG TAB ONE (16:22)
[2020-05-19] MEDS ORDERED: diphenhydrAMINE 50 MG/ML VIAL ONE ×2 (16:22→17:21)
--- NOTE | 2020-05-19 16:45 | ULT ---
Venous duplex sonogram bilateral lower extremity HISTORY: Bilateral leg pain and edema. FINDINGS: Each common femoral vein and greater saphenous junction were evaluated along with each femo ral, deep femoral, popliteal, and posterior tibial vein. There is good color and spectral Doppler flow, compression, and augmentation. IMPRESSION : No sonographic evidence of DVT within either lower extremity.
[2020-05-19] MEDS ORDERED: Dexamethasone 10 MG/ML VIAL ONE (17:21)
[2020-05-19] MEDS ORDERED: EPINEPHrine 1 MG/ML AMP ONE (17:21)
--- NOTE | 2020-05-19 18:14 | CT ---
CT ANGIO OF CHEST PERFORMED WITH INTRAVENOUS CONTRAST ENHANCEMENT WITH 3D RECONSTRUCTIONS: 05/19/20 HISTORY: Morbid obesity. History of PE. Shortness of breath. History of lupus. The patient is premedicated using the fast prep protocol but still reported itchiness and severe shor tness of breath after the scan. COMPARISON: A 02/17/20 examination. A mosaic type lung pattern is seen. I believe that this is mainly on the basis of air trapping. Subse gmental atelectatic changes in the lung bases are present. Bilateral breast augmentation is noted. No significant mediastinal or hilar adenopathy. The pulmonary artery opacification is very suboptimal a nd not diagnostic for evaluation of pulmonary embolus. No obvious large central embolus is seen. Thor acic aorta is normal in caliber. The visualized liver parenchyma shows an incompletely characterized mass within the posterior portion of the right lobe. It is unchanged since the prior examination. It measures in the 3 cm range. Somew hat indistinct in nature. No definitely hemangioma. IMPRESSION: 1. Stable lung parenchymal changes probably on the basis of air trapping. 2. Nondiagnostic exam for pulmonary embolus. Main pulmonary does appear dilated which could be r elated to pulmonary artery hypertension. No large central embolus is seen. 3. Indeterminate right lobe liver mass, stable as compared to January examination. Further charact erization with MRI or CTs and renal mass protocol would be suggested. POS: KAVITHA
== END 2020-05-19 19:30 | disposition home or self-care (01) ==
LOC: ERS 14:44
DX: R60.0 Localized edema (principal); I11.0 Hypertensive heart disease with heart failure; I50.9 Heart failure, unspecified; M19.90 Unspecified osteoarthritis, unspecified site; I27.20 Pulmonary hypertension, unspecified; F41.9 Anxiety disorder, unspecified; F32.9 Major depressive disorder, single episode, unspecified; Z86.718 Personal history of other venous thrombosis and embolism; Z86.711 Personal history of pulmonary embolism
CPT/HCPCS: 71275; 81025; 93970; 96372; 96374; 96375; 96376; J0171; J1100; J1200; J2930; Q9967; S0028

== ENCOUNTER 2020-09-16 23:23 | Inpatient (IN) | payer MEDICARE, MEDICAID ==
[2020-09-16] MEDS ORDERED: Propofol 1,000 MG/100 ML VIAL IV ONE (23:37)
[2020-09-16 23:45] LABS: Actual Bicarbonate (HCO3a) 27.8 mEq/L (22-28); Analyzer IN Cardio ER; Base Excess (BEa) 3.1 mEq/L (-2.0 to +3.0); CO2 Tension 42.8 mmHg (35.0-45.0); Calcium, Ionized (arterial) 1.12 mmol/L (1.12-1.30); Carboxyhemoglobin (COHb) 0.4 gm% (0.0-3.0); Hemoglobin (Hb) 11.9 g/dL (12.0-16.0); O2 Tension (PaO2), arterial 101.7 mmHg (80.0-100.0); Potassium - ABG Lab 3.11 mmol/L (3.70-5.30); pH, Arterial 7.43 (7.35-7.45)
[2020-09-16 23:52] LABS: Puncture Site RRA
--- NOTE | 2020-09-16 23:55 | RAD ---
Portable frontal chest radiograph: 09/16/2020 COMPARISON: 08/29/2020 HISTORY: Congestive heart failure, Covid exposure, fever FINDINGS: There is an endotracheal tube in place, distal tip overlying the tracheal air column at the level of the clavicular heads. No pneumothorax noted. Hazy new linear density in the perihilar regions and both lung bases with bibasilar new airspace disease and partial obscuration of right amarjit diaphragm. Heart and mediastinal contours appear stable. IMPRESSION: Endotracheal tube in place. Linear opacity in the perihilar regions and both lung bases w ith superimposed groundglass alveolar opacity suspicious for pulmonary edema, infectious pneumonitis, and/or aspiration. Infection associated with Covid 19 is a possibility.
[2020-09-16] MEDS ORDERED: Dexamethasone 10 MG/ML VIAL ONE (23:56)
[2020-09-16] MEDS ORDERED: Cefepime 2 GM VIAL ONE (23:56)
[2020-09-17] MEDS ORDERED: Magnesium 2 GM/50 ML BAG (IN WATER) ONE (00:28)
[2020-09-17 00:29] LABS: Bilirubin Negative (Negative); Blood, Urine Negative (Negative); Clarity Clear (Clear); Glucose, Urine (Dipstick) Normal (Negative); Ketone, Urine Negative (Negative); Leukocyte Negative Leu/uL (Negative); Nitrite Negative (Negative); Protein, Urine (Dipstick) Negative (Neg-Trace); Urobilinogen Normal mg/dL (Less than 2)
[2020-09-17] MEDS ORDERED: Propofol 1,000 MG/100 ML VIAL IV ONE ×2 (01:19→03:41)
[2020-09-17 01:22] LABS: Hemoglobin 11.5 g/dL (12.0-16.0); Mean Corpuscular HGB CONC 32.4 g/dL (32.0-36.0); Mean Corpuscular Hemoglobin 28.2 pg (27.0-31.0); Mean Corpuscular Volume 87.2 fL (78.0-98.0); RBC Distribution Width 14.4 % (11.5-14.5); Red Blood Cell (RBC) Count 4.07 mill/uL (4.20-5.40); White Blood Cell (WBC) Count 6.6 thou/uL (4.8-10.8)
[2020-09-17 01:31] LABS: SARS-CoV-2 NAA Rapid Test Not Detected (NotDetected)
[2020-09-17 01:33] LABS: #Eosinphils 0.2 thou/uL (0.0-0.7); #Lymphocytes 1.6 thou/uL (1.20-3.40); #Monocytes 0.3 thou/uL (0.11-0.59); #Neutrophils 4.6 thou/uL (1.40-6.50); %Basophils 0.7 % (0.0-1.0); %Eosinophils 3.1 % (0.0-10.0); %Lymphocytes 23.6 % (21.0-51.0); %Monocytes 3.9 % (0.0-10.0); %Neutrophils 68.7 % (42.0-75.0); Mean Platelet Volume 8.8 fL (7.4-10.4); Platelet Count 71 thou/uL (130-400); Platelet Morphology Comment Appears Decreased
[2020-09-17 01:50] LABS: ALT (SGPT) 16 U/L (8-55); AST (SGOT) 23 U/L (5-34); Albumin 3.9 g/dL (3.5-5.0); Alkaline Phosphatase 151 U/L (40-110); Anion Gap 17 mmol/L (10-20); BUN (Urea Nitrogen) 19 mg/dL (7.0-18.7); Bilirubin, Total 0.2 mg/dL (0.2-1.2); Calc. Creatinine Clearance 0 mL/min (70-130); Calcium 8.9 mg/dL (7.8-10.44); Carbon Dioxide 25 mmol/L (22-29); Chloride 99 mmol/L (98-107); Estimated GFR-MDRD 75; Globulin 3.5 g/dL (2.4-3.5); Glucose 126 mg/dL (70-105); Lipase 8 U/L (8-78); Potassium 3.3 mmol/L (3.5-5.1); Protein, Total 7.4 g/dL (6.0-8.3); Sodium 138 mmol/L (136-145)
[2020-09-17] MEDS ORDERED: Guaifenesin DM 100-10/5 ML UDCUP PO PRN (04:01)
[2020-09-17] MEDS ORDERED: Ventilator Sedation Protocol 1 EACH FS ONE (04:01)
[2020-09-17] MEDS ORDERED: Calcium Carbonate 500 MG ChewTAB PO PRN (04:01)
[2020-09-17] MEDS ORDERED: Acetaminophen 650 MG Suppository PR PRN (04:01)
[2020-09-17] MEDS ORDERED: fentaNYL Citrate/PF 2,000 MCG in Sodium Chloride 0.9% 60 ML IV SCH (04:15)
[2020-09-17] MEDS ORDERED: Fentanyl BOLUS 250 ML IVPB PRN (04:15)
[2020-09-17] MEDS ORDERED: Lorazepam 2 MG/ML VIAL SLOW IVP PRN (04:15)
[2020-09-17] MEDS ORDERED: DISCONTINUE PREVIOUS NARCOTIC PAIN MEDICATIONS AND BENZODIAZEPINES FS SCH (04:15)
[2020-09-17] MEDS ORDERED: Propofol BOLUS 1,000 MG/100 ML VIAL IV PRN (04:15)
[2020-09-17] MEDS ORDERED: Morphine 2 MG/ML VIAL SLOW IVP PRN (04:15)
--- NOTE | 2020-09-17 04:20 | PDOC.HHP ---
Hospitalist HPI - History of Present Illness respiratory failure / covid 19 History of Present Illness: history is limited, during my evaluation patient was sedated and in MV, no family members were present at the momeng of my evaluation, most of the history was obtain from emr and ems records Case of an 45y/o female with pmhx of htn, hld, chf, pulmonary hypertension on home, on 2l of o2 at night, lupus, hx of seizures, hx of PEs, chronic lymphedema and hx of breast CA who comes to hospital via EMS for acute onset shortness of breath. Patient had been feeling feverish with intermittently productive cough for the past 2 days. Today she became acutely short of breath and EMS began transporting her to this facility. During transport patient became acutely dyspneic requiring rapid sequence intubation by EMS. patient had a confirmed exposed covid 19 exposure 3 days ago. cxr and chest ct consistent with covid 19 Hospitalist ROS - Review of Systems All other systems reviewed; all pertinent +/- noted in HPI/Subj Hospitalist History - Past Medical History Heme/Onc: reports: Cancer Renal/: reports: Chronic renal insuff - Past Surgical History Past Surgical History: reports: Mastectomy, Other (Cardiac cath times 2 - one confirmed PAH, one with normal pressures. This is per patient) - Family History Family History: reports: hypertension - Social History Smoking Status: Never smoker Alcohol: reports: Rare Drugs: reports: none - Exam General Appearance: ill appearing General - other findings: sedated ENT: normocephalic atraumatic, no oropharyngeal lesions, moist mucosa Neck: supple, symmetric, no JVD, no thyromegaly Heart: RRR, no murmur, no gallops, no rubs Respiratory: wheezes Respiratory - other findings: decreased lung sounds Gastrointestinal: soft, non-tender, non-distended, normal bowel sounds Extremities: no cyanosis, no clubbing, no edema Skin: normal turgor, no lesions, no rashes Neurological: cranial nerve grossly intact, normal sensation to touch, no weakness Musculoskeletal: normal tone, no muscle wasting Psychiatric - other findings: sedated Hospitalist Results - Labs Result Diagrams: 09/17/20 00:56 09/17/20 00:56 Lab results: WBC 6.6 thou/uL (4.8-10.8) 09/17/20 00:56 Hgb 11.5 g/dL (12.0-16.0) L 11 00:56 Hct 35.5 % (36.0-47.0) L 09/17/20 00:56 MCV 87.2 fL (78.0-98.0) 09/17/20 00:56 Plt Count 71 thou/uL (130-400) L 09/17/20 00:56 Neutrophils % 68.7 % (42.0-75.0) 09/17/20 00:56 ABG pH 7.43 (7.35-7.45) 09/16/20 23:37 ABG pCO2 42.8 mmHg (35.0-45.0) 09/16/20 23:37 ABG pO2 101.7 mmHg (80.0-100.0) H 09/16/20 23:37 Sodium 138 mmol/L (136-145) 09/17/20 00:56 Potassium 3.3 mmol/L (3.5-5.1) L 09/17/20 00:56 Chloride 99 mmol/L (98-107) 09/17/20 00:56 Carbon Dioxide 25 mmol/L (22-29) 09/17/20 00:56 BUN 19 mg/dL (7.0-18.7) H 09/17/20 00:56 Creatinine 0.83 mg/dL (0.6-1.1) 09/17/20 00:56 Glucose 126 mg/dL (70-105) H 09/17/20 00:56 Lactic Acid 1.8 mmol/L (0.5-2.2) 09/17/20 00:56 Calcium 8.9 mg/dL (7.8-10.44) 09/17/20 00:56 Total Bilirubin 0.2 mg/dL (0.2-1.2) 09/17/20 00:56 AST 23 U/L (5-34) 09/17/20 00:56 ALT 16 U/L (8-55) 09/17/20 00:56 Alkaline Phosphatase 151 U/L (40-110) H 09/17/20 00:56 Troponin I 0.011 ng/mL (< 0.028) 09/17/20 00:56 B-Natriuretic Peptide Less than 10.0 pg/mL (0-100) 09/17/20 00:56 Serum Total Protein 7.4 g/dL (6.0-8.3) 09/17/20 00:56 Albumin 3.9 g/dL (3.5-5.0) 09/17/20 00:56 Lipase 8 U/L (8-78) 09/17/20 00:56 Urine Ketones Negative mg/dL (Negative) 09/17/20 00:04 Urine Blood Negative (Negative) 09/17/20 00:04 Urine Nitrite Negative (Negative) 09/17/20 00:04 Ur Leukocyte Esterase Negative Brandon/uL (Negative) 09/17/20 00:04 Hospitalist H&P A/P - Problem (1) Acute and chronic respiratory failure Code(s): J96.20 - ACUTE AND CHR RESP FAILURE, UNSP W HYPOXIA OR HYPERCAPNIA S tatus: Acute (2) Pneumonia due to COVID-19 virus Code(s): U07.1 - COVID-19; J12.89 - OTHER VIRAL PNEUMONIA Status: Acute (3) CHF (congestive heart failure) Code(s): I50.9 - HEART FAILURE, UNSPECIFIED Status: Acute Qualifiers: Heart failure type: unspecified Heart failure chronicity: unspecified Qualified Code(s): I50.9 - Heart failure, unspecified (4) Seizure Code(s): R56.9 - UNSPECIFIED CONVULSIONS Status: Acute (5) Lupus Code(s): M32.9 - SYSTEMIC LUPUS ERYTHEMATOSUS, UNSPECIFIED Status: Chronic (6) Obesity Code(s): E66.9 - OBESITY, UNSPECIFIED Status: Chronic (7) PAH (pulmonary artery hypertension) Code(s): I27.21 - SECONDARY PULMONARY ARTERIAL HYPERTENSION Status: Chronic (8) Breast cancer Status: Resolved - Plan Plan: 45y/o female with the stated pmhx who present with respiratory failure requiring MV due to covid 19 pneumonia acute on chronic respiratory failure - dyspneic requiring MV on route to hospital - uses 02 2l at home for sleeping. ALBERTINA evaluation negative likely obesity hypo ventilation syndrome - on MV - immigration specialist consulted - wean as tolerated - likely secondary to covid 19 pneumonia - f/u abgs covid 19 pneumonia - cxr + chest ct consistent w covid 19 pneumonia - started prophylactically on levaquin - decadron 6mg ivd - initial test negative - isolation precautions - id consulted - f/u inflammation markers - f/u cultures thrombocytopenia - new onset - holding dvt prophylaxis for now - peripheral smear chf - last ef 50-55%, no impared relaxation reported lupus / pulmonary htn / hx of breast ca / seizures - continue home meds when more stable
[2020-09-17 04:34] LABS: Troponin I Less than 0.010 ng/mL (< 0.028)
[2020-09-17] MEDS: Propofol 1,000 MG/100 ML VIAL IV PRN ×3 (04:54→07:58)
[2020-09-17] MEDS: Sodium Chloride 0.9% 1,000 ML IV SCH ×2 (04:55→18:09)
[2020-09-17 05:10] VITALS: BMI 50.8
[2020-09-17] MEDS: Famotidine/PF 20 mg/2ml Vial SLOW IVP SCH ×2 (07:58→20:37)
[2020-09-17 08:04] LABS: Troponin I Less than 0.010 ng/mL (< 0.028)
--- NOTE | 2020-09-17 08:26 | PDOC.HOSPP ---
- Subjective Encounter Date: 09/17/20 Encounter Time: 08:24 Subjective: intubated, sedated - Objective Vital Signs & Weight: Vital Signs (12 hours) Pulse Resp BP Pulse Ox 09/17/20 06:39 113 H 130/82 09/17/20 05:49 97 09/17/20 04:03 14 Weight Weight 305 lb 1.916 oz Most Recent Monitor Data Heart Rate from ECG 117 NIBP 136/85 NIBP BP-Mean 102 Respiration from ECG 19 SpO2 98 I&O: 09/16/20 09/17/20 09/18/20 06:59 06:59 06:59 Output Total 430 Balance -430 Result Diagrams: 09/17/20 00:56 09/17/20 00:56 Hospitalist ROS - Medication Medications: Active Medications Generic Name Dose Route Start Last Admin Trade Name Freq PRN Reason Stop Dose Admin Famotidine 20 mg 09/17/20 09:00 09/17/20 07:58 Famotidine/Pf 20 Mg/2ml Vial SLOW IVP 20 mg Q12HR JAYDEN Administration Sodium Chloride 1,000 mls @ 70 mls/hr 09/17/20 04:30 09/17/20 04:55 Normal Saline 0.9% IV 1,000 mls .[id number] JAYDEN Administration Fentanyl Citrate 2,000 mcg/ 100 mls @ 0 mls/hr 09/17/20 04:15 09/17/20 07:57 Sodium Chloride IV 10/17/20 04:15 100 mls INF JAYDEN Administration Protocol Per Protocol Propofol 1,000 mg 09/17/20 04:15 09/17/20 07:58 Propofol 1,000 Mg/100 Ml Vial IV 10/17/20 04:15 1,000 mg INF PRN Administration TO ACHIEVE GOAL RASS Protocol - Exam Neck: no JVD Heart: RRR, no murmur Respiratory - other findings: bilat fine rales Gastrointestinal: soft, non-distended, normal bowel sounds Extremities: no edema Hosp A/P (1) Acute and chronic respiratory failure Code(s): J96.20 - ACUTE AND CHR RESP FAILURE, UNSP W HYPOXIA OR HYPERCAPNIA Status: Acute Qualifiers: Respiratory failure complication: hypoxia Qualified Code(s): J96.21 - Acute and chronic respiratory failure with hypoxia (2) Pneumonia due to COVID-19 virus Code(s): U07.1 - COVID-19; J12.89 - OTHER VIRAL PNEUMONIA Status: Acute (3) CHF (congestive heart failure) Code(s): I50.9 - HEART FAILURE, UNSPECIFIED Status: Acute Qualifiers: Heart failure type: unspecified Heart failure chronicity: unspecified Qualified Code(s): I50.9 - Heart failure, unspecified (4) PAH (pulmonary artery hypertension) Code(s): I27.21 - SECONDARY PULMONARY ARTERIAL HYPERTENSION Status: Chronic (5) Seizure disorder Code(s): G40.909 - EPILEPSY, UNSP, NOT INTRACTABLE, WITHOUT STATUS EPILEPTICUS Status: Chronic (6) Breast cancer Status: Resolved - Plan cont steroids D-Dimer,CRP, ferriten stat (COVID test neg) dicuss with intebsivist
[2020-09-17] MEDS: Dexamethasone 6 MG in Sodium Chloride 0.9% 50 ML IVPB SCH (08:31)
--- NOTE | 2020-09-17 08:36 | CT ---
PRELIMINARY REPORT/[facility]/EMERGENCY AFTER HOURS PROCEDURE EXAM: CTA Chest with Intravenous Contrast CLINICAL HISTORY: Patient is a 45-year-old female with a past medical history significant for hypertension hyperlipidem ia CHF presenting via EMS for acute onset shortness of breath. Patient had been feeling feverish with intermittently productive cough for the past 2 days. Today she became acutely short of breath an d EMS began transporting her to this facility. During transport patient became acutely dyspneic requiring rapid sequence intubation by EMS. TECHNIQUE: Axial CTA images of the chest with intravenous contrast. Three-dimensional MIP/volume rendered reform ations were performed. CONTRAST: With; ISOVUE 370,100mL COMPARISON: None provided. FINDINGS: PULMONARY ARTERIES The main pulmonary artery is dilated measuring 3.8 cm in transverse dimension. Values in excess of 3 cm are commonly associated with pulmonary hypertension. No evidence of central pulmonary embolism. In multiple locations, arterial enhancement is not suffici ent to confidently exclude segmental and subsegmental emboli. AORTA No thoracic aortic aneurysm or dissection. LUNGS There is moderately extensive atelectasis throughout the bilateral lower lobes. PLEURAL SPACES No pleural effusion. No pneumothorax. HEART AND MEDIASTINUM Heart is normal in size. No evidence of pericardial effusion. LYMPH NODES No lymphadenopathy. BONES No focal osseous abnormality or acute fracture. CHEST WALL AND UPPER ABDOMEN Esophagogastric tube is present and extends into the gastric fundus. MISCELLANEOUS: Endotracheal tube is present with tip 4 cm above the carinal angle. Right internal jugular catheter is present with tip at cavoatrial junction IMPRESSION: 1. No evidence of central pulmonary embolism. Contrast opacification is not sufficient to exclude s egmental and subsegmental emboli. 2. Moderate atelectasis of bilateral lower lobes. Lower lobar pneumonia is not excluded. 3. There is moderate dilatation of the main pulmonary artery which likely indicates chronic pulmonar y hypertension. ELECTRONICALLY SIGNED BY: Clifford Sy M.D. Sep 17, 2020 2:39:58 AM [employer] This report is intended for review by the ordering physician only, in accordance of law. If you recei ve this report in error, please call [facility] at [phone]. FINAL REPORT CT arteriogram chest with IV contrast and 3-D imaging 09/17/2020 performed on emergency basis at 0207 hours HISTORY: Chest pain. Dyspnea. COMPARISON: 05/19/2020. FINDINGS: Agree with the preliminary report by Dr. Sy from [facility]. No evidence of pulmon lilian embolus. Significant atelectasis is present at the dependent portion of each lower lobe. Distention of the main pulmonary artery may reflect pulmonary artery hypertension. There are postoper ative changes of each axilla. Hemostasis clips are present along each side of the back. Transcribed Date/Time: 09/17/2020 8:43 AM
[2020-09-17] MEDS ORDERED: Potassium Chloride 40 MEQ in Sodium Chloride 0.9% 250 ML 250 ML IVPB SCH (08:45)
[2020-09-17] MEDS ORDERED: Electrolyte Replacement Protocol FS PRN (08:45)
--- NOTE | 2020-09-17 08:52 | RAD ---
PORTABLE CHEST: HISTORY: Central line placement. CHF. COMPARISON: 09/16/2020. FINDINGS/IMPRESSION: ET tube, NG tube, and central line appear adequately positioned. Bibasilar infiltrates and/or atelec tasis with small effusions unchanged. No acute interval change in the lung ingram. POS: AGW
[2020-09-17] MEDS ORDERED: Enoxaparin Sodium 40 MG/0.4 ML SYRINGE SC SCH (09:00)
[2020-09-17] MEDS ORDERED: FLU VACC QS2020-21(6MOS UP)/PF 60 MCG/0.5 ML SYRINGE IM ONE (09:00)
[2020-09-17 11:36] LABS: Actual Bicarbonate (HCO3a) 24.7 mEq/L (22-28); Base Excess (BEa) -0.5 mEq/L (-2.0 to +3.0); CO2 Tension 42.7 mmHg (35.0-45.0); Calcium, Ionized (arterial) 1.15 mmol/L (1.12-1.30); Carboxyhemoglobin (COHb) 0.6 gm% (0.0-3.0); Hemoglobin (Hb) 12.3 g/dL (12.0-16.0); Potassium - ABG Lab 4.16 mmol/L (3.70-5.30); pH, Arterial 7.38 (7.35-7.45)
[2020-09-17 11:39] LABS: Puncture Site LRA
[2020-09-17 11:40] LABS: ALV-art Gradient 98.785 mmHg (0-20)
[2020-09-17 12:36] LABS: Potassium 4.6 mmol/L (3.5-5.1)
--- NOTE | 2020-09-17 13:49 | CON ---
DATE OF CONSULTATION: 09/17/2020 REASON FOR CONSULTATION: Respiratory failure and altered mental state. HISTORY OF PRESENT ILLNESS: A 45-year-old, who has a history of obesity, hypertension, seizure activity and reported systemic lupus erythematosus, thromboembolism, and pulmonary hypertension, who is O2 dependent at night at home and developed a respiratory symptoms for the past 2 days and apparently that has been a SARS-CoV-2 spread within the family members of aracely. On arrival, she had to be intubated. Initial findings; BP 200/120, pulse 115, temperature 99.9, and O2 saturation 98 and there was wheezing in lung exam, inspiratory crackles, and tachycardia. The patient was not able to communicate. Other findings; white cell count 6.6, hemoglobin 11.5, and platelets 71,000 with a normal differential. D-dimer 1.15. A pH of 7.38, pCO2 of 42, and pO2 of 76. Creatinine 0.83, potassium 4.6, sodium 138, glucose 126, lactic acid 1.8, alkaline phosphatase 151, and albumin 3.9. I do not see a toxic screen here submitted. Urinalysis was normal. SARS-CoV RNA PCR negative. CT showed no evidence of pulmonary embolism, atelectasis in lower lobes, evidence of chronic pulmonary hypertension. Currently, Ms. Peters is extubated herself. She is sedated and was complaining of pain before I went inside the room, but seems to have received something because she was very sleepy during the interview. She had some back pain, but no headaches. No abdominal pain. She has a Gong catheter. No diarrhea. No seizure activity. PAST MEDICAL HISTORY: Obesity, hypertension, pulmonary embolism, pulmonary hypertension, breast cancer, nocturnal hypoxia, sleep apnea on oxygen at night, seizure activity, and reported systemic lupus erythematosus. PAST SURGICAL HISTORY: , hysterectomy, partial, cholecystectomy, mastectomy, and bilateral lymph node removed. SOCIAL HISTORY: Lives in [place] with family. No smoking history. No drug use. FAMILY HISTORY: Apparently SARS-CoV-2 infection spreading within the family unit recently. ALLERGIES: IODINE, MORPHINE, PENICILLIN, AND SULFA DRUGS. MEDICATIONS: 1. Suboxone. 2. ReQuip. 3. Gabapentin. 4. Topamax. 5. Jardiance. 6. Losartan. 7. Progesterone. 8. Pepcid. In the hospital, she is on; 1. Decadron. 2. Fentanyl. 3. Levofloxacin. 4. Propofol. PHYSICAL EXAMINATION: VITAL SIGNS: T-max 100 and she is now 99.7, heart rate 97, BP 120/86, and O2 saturation ranging from 88 to 97, FiO2 of 50. Now, she is extubated, she is on 3 L nasal cannula. SKIN: Multiple tattoos in skin. She has an indwelling Gong catheter and peripheral IV access. HEENT: Ocular movements are conjugate. Sclerae white. Pupils are equal. Oral cavity with no [place] teeth remaining. NECK: Supple. LUNGS: Symmetric air entry. Few crackles on the right side base. HEART: S1 and S2. Regular rate. No S3 or S4. ABDOMEN: Soft, not distended or tender. No ascites. No bladder distention. EXTREMITIES: No joint inflammatory activity. She is able to move extremities on command. No edema. NEUROLOGIC: She is quite sedated right now. She is drowsy and could not reply to all my questions other than with signs and head motions. LABORATORY DATA: The latest values of labs are have been already reviewed. CT of chest showed no PE and some atelectasis. ASSESSMENT: History of obesity, hypertension, pulmonary embolism with pulmonary hypertension, and O2 supplementation at nighttime probably for desaturation during sleep, question possibility of sleep apnea. History of systemic lupus, although not well documented and now abnormal mental state with respiratory failure requiring intubation on arrival to the emergency room and SARS-CoV transmission within the family recently. DISCUSSION: She does not have the typical findings of SARS-CoV-[address] scan. Findings are more consistent with bacterial pneumonia, but there is a high pretest likelihood for the COVID-19, so go ahead and retesting and add serum testing as well for antibodies. Continue antimicrobial therapy for presumed bacterial pneumonia. Possibility of drug overdose in the home setting is significant. We will go and submit a toxic screen as well. I do not see HIV serology. We will add HIV and hepatitis C and syphilis serology. Job ID: [id number]
[2020-09-17 14:36] LABS: Syphilis Antibody Nonreactive (Nonreactive); Syphilis Antibody Index 0.06 S/CO (<1.00 Non-Reactive)
[2020-09-17 14:38] LABS: HIV (1/2) Antibody/Antigen Non-Reactive (NonReactive); HIV 1/2 INDEX 0.16 S/CO (<1.00); Hep C IgG Ab Non-Reactive (NonReactive); Hep C Index 0.22 S/CO (0-0.79)
[2020-09-17 20:27] LABS: SARS-CoV-2 IgG Ab Non-Reactive (NonReactive); SARS-CoV-2 IgG Index 0.02 S/CO (< 1.40)
[2020-09-17 21:19] LABS: SARS-CoV-2 MS2 Positive; SARS-CoV-2 N Gene Negative; SARS-CoV-2 S Gene Negative; SARS-CoV-2 by NAA Not Detected (NotDetected); SARS-CoV-2 orf1ab Negative
[2020-09-17] MEDS: Acetaminophen 325 MG TAB PO PRN (22:11)
[2020-09-17] MEDS ORDERED: Buprenorphine 8mg/Naloxone 2mg per 1 FILM SL SCH (23:15)
--- NOTE | 2020-09-18 01:34 | CON ---
DATE OF CONSULTATION: 09/17/2020 HISTORY OF PRESENT ILLNESS: Ms. Peters is a 45-year-old female. Apparently, she presented with a history of a cough for several days, shortness of breath, in subsequent intubation, transferred to the hospital. I was consulted to see her this morning. She is self-extubated prior to my initial evaluation. She was screaming at the nurses saying that she needed Dilaudid for pain as it was the only thing that worked for her. She has a history of multiple emergency department visits this year contributing to several per month, going back several months. PAST MEDICAL HISTORY: Remarkable for: 1. Breast cancer. 2. History of lupus. 3. History of an admission in January with chest discomfort. 4. History of lumpectomy for carcinoma reportedly in situ in 2008. 5. History of breast cancer in 2009. 6. History of bilateral mastectomy with cancer in her chest wall in 2011. She has never had chemo or radiation according to the notes from earlier this year. She is unable to give a history when I saw her. 7. History of cholecystectomy. 8. History of multiple C-sections. 9. History of carpal tunnel surgery. 10. History of ankle surgery. 11. History of surgery for endometriosis. SOCIAL HISTORY: Nonsmoker, nondrinker. FAMILY HISTORY: Positive for vascular disease, hypertension, and breast cancer. REVIEW OF SYSTEMS: Negative. PHYSICAL EXAMINATION: VITAL SIGNS: Heart rate is 70, blood pressure 110/79, respiratory rates in the teens. She is afebrile. HEAD AND NECK: Unremarkable. LUNGS: Clear. HEART: Regular rhythm. ABDOMEN: Soft. EXTREMITIES: Without asymmetry. She is somnolent, but would wake up and move all her extremities. LABORATORY DATA: White count 6.6, hemoglobin 11.5, platelets 71,000. COVID screen is negative x2 once back in January and now this admission. HIV is negative. Her hepatitis C is negative. Syphilis antibody panel was done, which is negative. Chest CT shows bibasilar atelectasis. IMPRESSION: Respiratory failure that appears to have resolved quickly with self-extubation and an immediate request for Dilaudid. The etiology of all this is unclear at this time. Dr. Milner is consulted for antimicrobial therapy. Post extubation, she is stable for now. This is a 70min visit with greater than 50% of the time spent on the unit with coordination of care. Job ID: [id number] [id number]
[2020-09-18] MEDS: Acetaminophen 325 MG TAB PO PRN (02:48)
[2020-09-18 04:59] LABS: ALT (SGPT) 17 U/L (8-55); AST (SGOT) 20 U/L (5-34); Albumin 3.4 g/dL (3.5-5.0); Alkaline Phosphatase 134 U/L (40-110); Anion Gap 14 mmol/L (10-20); BUN (Urea Nitrogen) 13 mg/dL (7.0-18.7); Bilirubin, Total 0.2 mg/dL (0.2-1.2); Calc. Creatinine Clearance 231 mL/min (70-130); Calcium 8.2 mg/dL (7.8-10.44); Carbon Dioxide 23 mmol/L (22-29); Chloride 104 mmol/L (98-107); Estimated GFR-MDRD Greater than 90; Globulin 3.1 g/dL (2.4-3.5); Glucose 140 mg/dL (70-105); Potassium 3.4 mmol/L (3.5-5.1); Protein, Total 6.5 g/dL (6.0-8.3); Sodium 138 mmol/L (136-145)
[2020-09-18 05:11] LABS: Band 17 % (5-11); Eosinophils 3 % (0-10); Lymphocytes 23 % (21-51); MDiff Complete? YES; Mean Corpuscular HGB CONC 31.5 g/dL (32.0-36.0); Mean Corpuscular Hemoglobin 27.8 pg (27.0-31.0); Mean Corpuscular Volume 88.2 fL (78.0-98.0); Mean Platelet Volume 7.7 fL (7.4-10.4); Monocytes 5 % (0-10); Neutrophil 52 % (42-75); Platelet Count 238 thou/uL (130-400); RBC Distribution Width 14.4 % (11.5-14.5); Red Blood Cell (RBC) Count 3.58 mill/uL (4.20-5.40); White Blood Cell (WBC) Count 8.9 thou/uL (4.8-10.8)
--- NOTE | 2020-09-18 07:41 | PDOC.HOSPP ---
- Subjective Encounter Date: 09/18/20 Encounter Time: 07:31 Subjective: "my head hurts, i hurt all over, ihave a migraine, only dilaudid helps" - Objective Vital Signs & Weight: Vital Signs (12 hours) Pulse Ox 09/17/20 20:00 100 Weight Weight 305 lb 1.916 oz Most Recent Monitor Data Heart Rate from ECG 84 NIBP 112/67 NIBP BP-Mean 82 Respiration from ECG 14 SpO2 98 I&O: 09/17/20 09/18/20 09/19/20 06:59 06:59 06:59 Intake Total 2756.8 Output Total 430 2110 45 Balance -430 646.8 -45 Result Diagrams: 09/18/20 04:22 09/18/20 04:22 Hospitalist ROS - Medication Medications: Active Medications Generic Name Dose Route Start Last Admin Trade Name Freq PRN Reason Stop Dose Admin Acetaminophen 650 mg 09/17/20 04:01 09/18/20 02:48 Acetaminophen 325 Mg Tab PO 650 mg Q4H PRN Administration Headache/Fever/Mild Pain (1-3) Famotidine 20 mg 09/17/20 09:00 09/17/20 20:37 Famotidine/Pf 20 Mg/2ml Vial SLOW IVP 20 mg Q12HR JAYDEN Administration Sodium Chloride 1,000 mls @ 70 mls/hr 09/17/20 04:30 09/17/20 18:09 Normal Saline 0.9% IV 1,000 mls .[id number] JAYDEN Administration Levofloxacin 750 mg/ Device 150 mls @ 100 mls/hr 09/17/20 23:59 09/17/20 22:11 IVPB 150 mls [id number] JAYDEN Administration Dexamethasone 6 mg/ Sodium 50.6 mls @ 100 mls/hr 09/17/20 09:00 09/17/20 08:31 Chloride IVPB 50.6 mls DAILY JAYDEN Administration Fentanyl Citrate 2,000 mcg/ 100 mls @ 0 mls/hr 09/17/20 04:15 09/17/20 07:57 Sodium Chloride IV 10/17/20 04:15 100 mls INF JAYDEN Administration Protocol Per Protocol Dexmedetomidine HCl 400 mcg/ 100 mls @ 0 mls/hr 09/17/20 10:15 09/18/20 04:04 Sodium Chloride IVPB 100 mls INF JAYDEN Administration Protocol Titrate Propofol 1,000 mg 09/17/20 04:15 09/17/20 07:58 Propofol 1,000 Mg/100 Ml Vial IV 10/17/20 04:15 1,000 mg INF PRN Administration TO ACHIEVE GOAL RASS Protocol - Exam General Appearance: awake alert Neck: no JVD Heart: RRR, no murmur Respiratory: CTAB Gastrointestinal: soft, non-distended, normal bowel sounds Extremities: no edema Hosp A/P (1) Acute and chronic respiratory failure Code(s): J96.20 - ACUTE AND CHR RESP FAILURE, UNSP W HYPOXIA OR HYPERCAPNIA Status: Acute Qualifiers: Respiratory failure complication: hypoxia Qualified Code(s): J96.21 - Acute and chronic respiratory failure with hypoxia (2) Pneumonia due to COVID-19 virus Code(s): U07.1 - COVID-19; J12.89 - OTHER VIRAL PNEUMONIA Status: Acute (3) CHF (congestive heart failure) Code(s): I50.9 - HEART FAILURE, UNSPECIFIED Status: Acute Qualifiers: Heart failure type: unspecified Heart failure chronicity: unspecified Qualified Code(s): I50.9 - Heart failure, unspecified (4) PAH (pulmonary artery hypertension) Code(s): I27.21 - SECONDARY PULMONARY ARTERIAL HYPERTENSION Status: Chronic (5) Seizure disorder Code(s): G40.909 - EPILEPSY, UNSP, NOT INTRACTABLE, WITHOUT STATUS EPILEPTICUS Status: Chronic (6) Breast cancer Status: Resolved - Plan self extubated respiratory status stable will continue current meds, 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
[2020-09-18] MEDS ORDERED: Acetaminophen/Codeine 30-300mg Tablet PO PRN (07:46)
[2020-09-18] MEDS: Losartan 25 MG TAB PO SCH ×2 (08:53→17:23)
[2020-09-18] MEDS: Gabapentin 300 MG CAP PO SCH ×2 (08:53→15:00)
[2020-09-18] MEDS ORDERED: Buprenorphine 8mg/Naloxone 2mg per 1 FILM SL SCH (09:00)
[2020-09-18] MEDS ORDERED: Empagliflozin 10 MG TAB PO SCH (09:00)
[2020-09-18 09:07] VITALS: TEMP 98.5
[2020-09-18] MEDS: Famotidine/PF 20 mg/2ml Vial SLOW IVP SCH (09:43)
[2020-09-18] MEDS: Dexamethasone 6 MG in Sodium Chloride 0.9% 50 ML IVPB SCH (09:49)
[2020-09-18] MEDS: Sodium Chloride 0.9% 1,000 ML IV SCH (09:49)
[2020-09-18] MEDS ORDERED: Potassium Chloride 20 MEQ TAB PO SCH (10:45)
[2020-09-18] MEDS ORDERED: Labetalol HCl 100 MG/20 ML VIAL SLOW IVP PRN (14:10)
[2020-09-18] MEDS ORDERED: hydrALAZINE 20 MG/ML VIAL SLOW IVP PRN (14:11)
[2020-09-18 15:00] VITALS: BP 156/89
[2020-09-18 15:32] LABS: Potassium 3.4 mmol/L (3.5-5.1)
[2020-09-18] MEDS ORDERED: Famotidine 20 MG TAB PO SCH (21:00)
[2020-09-18] MEDS ORDERED: Topiramate 25 MG TAB PO SCH (21:00)
[2020-09-18] MEDS ORDERED: Progesterone,Micronized 100 MG CAP PO SCH (21:00)
[2020-09-18] MEDS ORDERED: rOPINIRole HCl 2 MG TAB PO SCH (21:00)
[2020-09-18] MEDS ORDERED: Zolpidem Tartrate 5 MG TAB PO SCH (21:00)
--- NOTE | 2020-09-19 07:49 | DIS ---
DATE OF ADMISSION: 09/16/2020 DATE OF DISCHARGE: 09/18/2020 PRIMARY CARE PROVIDER: Unknown, out of town. DISPOSITION: Discharged to home at her request. FINAL DIAGNOSES: 1. Acute respiratory failure, requiring ventilation, question of pneumonia. 2. History of pulmonary artery hypertension. 3. Post mastectomy. 4. Seizure disorder. 5. History of lupus. 6. History of renal insufficiency, resolved. HOSPITAL COURSE: The patient was initially thought to have SARS-COVID pneumonia. She was admitted to the emergency room to the [facility] Service. The patient was sedated. No family members present. During transport to the hospital, she became acutely dyspneic and was intubated by EMS. She had a confirmed exposure to COVID 3 days ago. The chest x-ray and CT were initially thought consistent with COVID disease. Subsequent followup examination by Radiology failed to confirm that on CTA of the chest. Her COVID test was negative x4. SARS-COVID PCR not detected, SARS-COVID 2 rapid RNA not detected, [id number]-[id number] IgG AB nonreactive, [id number]-[id number]-1 IgG antibody index 0.02, normal less than 1.4. Initial laboratory, CBC was unremarkable except for hemoglobin 11.5. She did not have the usual lymphopenia. D-dimer was 1.15, followed by 0.53. After she extubated herself, blood gas with pH of 7.38, CO2 of 42.7, O2 of 76 with a saturation of 95.5. Her comprehensive metabolic profile showed only a low potassium of 3.3, blood sugar 126. Lactic acid was 1.8. Cardiac enzymes were normal. Subsequently, a ferritin level was done, which was normal at 48, followup 38. C-reactive protein was 7.71 with a followup of 4.39. She was seen in consultation by Dr. Agustin Milner, Infectious Disease; Dr. Chool Wise, Pulmonology career advisor. Shortly after I saw her at 8:30 on the day of admission, she woke up, reached up, snatched her endotracheal tube out. I was called. The patient stated that she was breathing without problems and asked if I wanted to put her on BiPAP if she got short of breath again and I said certainly. She also noted that when she was screaming, that she needed Dilaudid. It is the only thing that helped. This is documented in multiple places. She was monitored in the ICU overnight. She had labile blood pressure, O2 saturation 100 on room air. When she was examined post extubation, chest was clear. When I examined her today, chest is clear. She was transferred from ICU down to oncology room 136. It is pertinent to note that this patient's home medicines includes buprenorphine/naloxine or Suboxone which is used in problem cases with narcotics. This afternoon, I was called, she wanted to talk to me. She was requesting medicines for headache. I explained to her that because of her history and what had gone on, I was unable to give her anything other than Tylenol for headache. I explained to her I would be back tomorrow to discharge her if she was stable, but I was not willing to introduce any new pain medications. At that point, she said "can I go home." I determined she is alert and oriented. She is stable with good oxygen saturation on room air. Chest is clear. Having no contraindication, I agreed to send her home. DISCHARGE MEDICATIONS: Cultures are negative. Therefore, went ahead and sent her home on levofloxacin 750 mg a day for 7 days. She takes Lunesta 30 mg at night, losartan 50 mg twice a day, progesterone 200 mg at night, gabapentin 300 mg three times a day, buprenorphine/naloxone 1 film sublingual twice a day, Jardiance 10 mg p.o. daily, Requip 6 mg p.o. daily, and Topamax 25 mg p.o. at bedtime. ALLERGIES: INCLUDE CONTRAST MEDIA WITH IODINE, MORPHINE, PENICILLINS, PNEUMOCOCCAL VACCINE, AND SULFONAMIDES. DIET: She is going home on a heart healthy diet. CODE STATUS: Full. PENDING AT DISCHARGE: The only thing pending at time of discharge is her blood cultures, and urine cultures are negative to date. They were drawn on 09/17/2020. She has been asked to follow up with her PCP at home within 3 to 7 days. Prognosis for readmission is above average for reasons related to medications. TIME SPENT: 35 minutes spent preparing this discharge. Job ID: [id number] MTDD
--- NOTE | 2020-09-20 05:10 | PQF ---
CLINICAL DOCUMENTATION CLARIFICATION FORM: Dear : Hernesto Alvares Date / Time: 09/20/2020 Please exercise your independent, professional judgment in responding to the clarification form. Clinical indicators are provided on the bottom of this form for your review Based on your clinical judgment, can you please specify the type of patients pneumonia? Please check appropriate box(es): [ ] Covid Pneumonia [k ] Bacterial Pneumonia [ ] Empirically treating Gram Negative Pneumonia [ ] Empirically treating Anaerobic Pneumonia [ ] Simple Pneumonia [ ] Pneumonia of unknown etiology [ ] Other diagnosis [ ] Unable to determine Physician Signature: Date/Time: For continuity of documentation, please document condition throughout progress notes and discharge summary. Thank You. To be completed by CDI/Coding staff for physician review: Present Clinical Indicators - Signs / Symptoms / Labs Results and Location in Medical Record [X] WBC 6.6, Plt count 71, Neurtophils 68.7 Laboratory 09/17 [X] SARS Cov RNA (RT-PCR): Not detected Serology 09/17 [X] SARS Cov 2 IgG Ab : Non-Reactive, Index 0.02 Serology 09/17 [X] Chest X-ray Impression: Basilar infiltrates and/or atelectasis with small effusions unchanged Imaging 09/17 Dr Che [X] BP 145/89, Pulse 115, Resp 123, Temp 99.0 Vital signs 09/17 [X] Pt had a confirmed exposed Covid 19 exposure 3 days ago H&P p1 09/16 Dr Han [X] CXR and chest ct consistent with covid 19 H&P p1 09/16 Dr Han [X] Acute on chronic respiratory failure H&P p3 09/16 Dr Han [X] she does not have typical findings of SARS-Cov-[address] scan. Findings are more consistent with bacterial pneumonia Consult Dr Milner 09/17 [X] Decreased lung sounds HP 09/17 [X] Pneumonia due to Covid19 virus PN 09/17 [X] Few crackles on the right side base Consult 09/17 Present Risk Factors Results and Location in Medical Record [X] HTN H&P p1 09/16 Dr Han [X] CHF H&P p1 09/16 Dr Han [X] Obesity H&P p3 09/16 Dr Han [X] Breast cancer H&P p3 09/16 Dr Han Present Treatments Results and Location in Medical Record [X] IVF NS 1L JAN 03 [X] IV Levaquin 750mg JAN 03 [X] IV Daxamethason 6 mg JAN 03 [X] IV Cefepime 2 gm JAN 03 [X] Mechanical ventilator Respiratory panel 09/17 [X] ID consult Consult Dr Milner 09/17 [X] Pulmo Consult Consult Dr Wise 09/17 CDS/Miner Helper Signature: Sarah Monreal Phone #: [phone] Date/Time: 09/20/2020 This is a permanent part of the Medical Record [facility]
== END 2020-09-18 17:40 | disposition home or self-care (01) | DRG 208 ==
LOC: ERS 23:23 → CCU 23:35 → ONC 09-18 13:01
PROVIDERS: ADMIT Internal Medicine; ATTEND Internal Medicine
PROC: 06HY33Z Insertion of Infusion Device into Lower Vein, Percutaneous Approach (ICD-10-PCS; 2020-09-16)
PROC: 5A1935Z Respiratory Ventilation, Less than 24 Consecutive Hours (ICD-10-PCS; principal; 2020-09-17)
DX: J96.21 Acute and chronic respiratory failure with hypoxia (principal); J15.9 Unspecified bacterial pneumonia; I13.0 Hypertensive heart and chronic kidney disease with heart failure and stage 1 through stage 4 chronic kidney disease, or unspecified chronic kidney disease; Z68.43 Body mass index [BMI] 50.0-59.9, adult; Z20.828 Contact with and (suspected) exposure to other viral communicable diseases; G40.909 Epilepsy, unspecified, not intractable, without status epilepticus; M32.9 Systemic lupus erythematosus, unspecified; M19.90 Unspecified osteoarthritis, unspecified site; I50.9 Heart failure, unspecified; F41.9 Anxiety disorder, unspecified; F32.9 Major depressive disorder, single episode, unspecified; I16.0 Hypertensive urgency; N18.9 Chronic kidney disease, unspecified; I27.21 Secondary pulmonary arterial hypertension; E66.9 Obesity, unspecified; D69.6 Thrombocytopenia, unspecified; Z78.1 Physical restraint status; Z85.3 Personal history of malignant neoplasm of breast; Z86.718 Personal history of other venous thrombosis and embolism; Z86.711 Personal history of pulmonary embolism; Z90.13 Acquired absence of bilateral breasts and nipples; Z90.49 Acquired absence of other specified parts of digestive tract; Z90.711 Acquired absence of uterus with remaining cervical stump; Z99.81 Dependence on supplemental oxygen; Z88.5 Allergy status to narcotic agent; Z88.0 Allergy status to penicillin; Z88.2 Allergy status to sulfonamides; Z91.041 Radiographic dye allergy status; Z79.899 Other long term (current) drug therapy
CPT/HCPCS: 36415; 36556; 36600; 51702; 71045; 71275; 80053; 81003; 82728; 82805; 83605; 83690; 83880; 84145; 84484; 85025; 85060; 85379; 86140; 86769; 86780; 86803; 87040; 87086; 87389; 87635; 93005; 94002; 94760; 96365; 96366; 96368; 96375; 99292; J0692; J1100; J1956; J2060; J2704; J3010; J3475; J3480; J3490; J7050; Q9967; S0028; U0002; U0003

== ENCOUNTER 2021-02-14 01:49 | Emergency (ER) | payer MEDICARE, MEDICAID ==
[2021-02-14] MEDS ORDERED: Ketorolac Tromethamine 30 MG/ML VIAL ONE (02:29)
[2021-02-14] MEDS ORDERED: Acetaminophen 500 MG TAB ONE (03:58)
== END 2021-02-14 04:03 | disposition home or self-care (01) ==
LOC: ERS 01:49
DX: L03.115 Cellulitis of right lower limb (principal); M71.21 Synovial cyst of popliteal space [Baker], right knee; I11.0 Hypertensive heart disease with heart failure; I50.9 Heart failure, unspecified; M19.90 Unspecified osteoarthritis, unspecified site; E66.9 Obesity, unspecified; Z86.711 Personal history of pulmonary embolism; Z86.718 Personal history of other venous thrombosis and embolism
CPT/HCPCS: 96372; J1885